=== PATIENT | male | born 1955 | race Caucasian/White ===

== ENCOUNTER → 2018-03-13 09:36 | Outpatient (CLI) | payer BC, SELFPAY ==
--- NOTE | 2018-03-13 10:06 | EKG12_ITS ---
Test Reason : PREOP Blood Pressure : / mmHG Vent. Rate : 071 BPM Atrial Rate : 071 BPM P-R Int : 126 ms QRS Dur : 094 ms QT Int : 398 ms P-R-T Axes : 008 003 014 degrees QTc Int : 432 ms Normal sinus rhythm Normal ECG Confirmed by RILEY DONALDSON, KT ([id number]), food editor FINESSE PINO ([id number] on 03/16/2018 2:23:47 PM Referred By: Lloyd Blackburn Confirmed By:KT LIN MD
[2018-03-13 11:47] LABS: Hematocrit 40.9 % (40-54); Hemoglobin 13.4 g/dl (13.0-16.5); Mean Corp Hgb Conc 32.8 g/gl (32-36); Mean Corpuscular Hgb 28.8 pg (27.0-32.0); Mean Platelet Vol. 9.6 fl (6.2-12.0); Platelet Count 219 K/mm3 (150-450); RBC Distribution Width CV 12.8 % (11.6-14.6); RBC Distribution Width SD 40.8 fl (35.1-43.9); Red Blood Count 4.65 M/mm3 (4.6-6.2); White Blood Count 5.7 K/mm3 (4.4-11.0)
[2018-03-13 11:48] LABS: Scan Indicated on CBC? Y/N NO
[2018-03-13 12:12] LABS: BUN 19 mg/dL (7-18); Creatinine, Serum 1.21 mg/dL (0.70-1.30); Glucose 116 mg/dL (74-106)
[2018-03-13 12:13] LABS: Anion Gap 6 (5-15); BUN/Creat Ratio 15.7 RATIO (10-20); Calcium,Total 8.2 mg/dL (8.5-10.1); Chloride 111 mmol/L (98-107); EST Glomerular Filtration Rate 65 mL/min (>60); Est Glom Filt Rate - Afr Amer 78 mL/min (>60); Potassium 4.2 mmol/L (3.5-5.1); Sodium Level 144 mmol/L (136-145)
== END ==
PROVIDERS: Family Provider Family Medicine; PCP Family Medicine; Visit Provider Physician Assistant
DX: Z01.818 Encounter for other preprocedural examination (principal)
CPT/HCPCS: 36415; 80048; 85027; 93005

== ENCOUNTER → 2018-06-10 12:04 | Outpatient (CLI) | payer BC, SELFPAY ==
[2018-06-10 13:27] LABS: Absolute Lymphocyte Count 2.13 X10^3/ul (0.83-4.51); Absolute Neutrophil Count 2.4 X10^3/uL (2.0-7.7); Basophil# 0.01 X10^3/uL; Basophil% 0.2 % (0-1); Eosinophil# 0.19 X10^3/uL; Eosinophils% 3.6 % (0-5); Hematocrit 37.4 % (40-54); Lymphocyte # 2.13 X10^3/ul (4.0); Mean Corp Hgb Conc 34.8 g/gl (32-36); Mean Corpuscular Volume 86.2 fL (80-94); Mean Platelet Vol. 9.3 fl (6.2-12.0); Monocyte# 0.55 X10^3/uL; Monocyte% 10.3 % (0-10); Neutrophil # 2.44 X10^3/uL (2.7-7.7); Neutrophil % 45.7 % (47-70); Platelet Count 238 K/mm3 (150-450); RBC Distribution Width CV 12.7 % (11.6-14.6); Red Blood Count 4.34 M/mm3 (4.6-6.2); White Blood Count 5.3 K/mm3 (4.4-11.0)
[2018-06-10 13:28] LABS: POSITIVE COUNT NO; POSITIVE DIFFERENTIAL NO; POSITIVE MORPHOLOGY NO
[2018-06-10 13:45] LABS: Anion Gap 6 (5-15); BUN 15 mg/dL (7-18); BUN/Creat Ratio 14.7 RATIO (10-20); Calcium,Total 8.5 mg/dL (8.5-10.1); Chloride 108 mmol/L (98-107); Creatinine, Serum 1.02 mg/dL (0.70-1.30); EST Glomerular Filtration Rate 79 mL/min (>60); Est Glom Filt Rate - Afr Amer 95 mL/min (>60); Glucose 102 mg/dL (74-106); Potassium 3.9 mmol/L (3.5-5.1); Sodium Level 143 mmol/L (136-145)
== END ==
PROVIDERS: Family Provider Family Medicine; PCP Family Medicine; Visit Provider Orthopaedic Surgery
DX: Z01.818 Encounter for other preprocedural examination (principal)
CPT/HCPCS: 36415; 80048; 85025

== ENCOUNTER 2018-11-10 16:09 | Observation (INO) | payer BC, SELFPAY ==
[2018-10-29 13:21] VITALS: BP 138/76; PULSE 78; RESP 16; TEMP 36.6; O2SAT 94; BMI 41.0
[2018-10-29 14:10] LABS: Absolute Lymphocyte Count 2.44 X10^3/ul (0.83-4.51); Absolute Neutrophil Count 3.1 X10^3/uL (2.0-7.7); Basophil# 0.03 X10^3/uL; Basophil% 0.5 % (0-1); Eosinophil# 0.25 X10^3/uL; Eosinophils% 3.9 % (0-5); Hematocrit 40.4 % (40-54); Lymphocyte # 2.44 X10^3/ul (4.0); Lymphocyte % 37.7 % (19-41); Mean Corp Hgb Conc 34.7 g/gl (32-36); Mean Corpuscular Hgb 29.5 pg (27.0-32.0); Mean Corpuscular Volume 85.1 fL (80-94); Mean Platelet Vol. 9.6 fl (6.2-12.0); Monocyte# 0.62 X10^3/uL; Monocyte% 9.6 % (0-10); Neutrophil # 3.11 X10^3/uL (2.7-7.7); Neutrophil % 47.8 % (47-70); POSITIVE COUNT NO; POSITIVE DIFFERENTIAL NO; POSITIVE MORPHOLOGY NO; Platelet Count 245 K/mm3 (150-450); RBC Distribution Width CV 12.7 % (11.6-14.6); RBC Distribution Width SD 38.8 fl (35.1-43.9); Red Blood Count 4.75 M/mm3 (4.6-6.2); White Blood Count 6.5 K/mm3 (4.4-11.0)
[2018-10-29 14:59] LABS: Anion Gap 8 (5-15); BUN 15 mg/dL (7-18); BUN/Creat Ratio 13.9 RATIO (10-20); Calcium,Total 8.8 mg/dL (8.5-10.1); Chloride 103 mmol/L (98-107); Creatinine, Serum 1.08 mg/dL (0.70-1.30); EST Glomerular Filtration Rate 74 mL/min (>60); Est Glom Filt Rate - Afr Amer 89 mL/min (>60); Estimated Creatinine Clearance 74.16 ml/min; Glucose 93 mg/dL (74-106); Sodium Level 139 mmol/L (136-145); Thyroid Stim Hormone (TSH) 1.43 uIU/mL (0.358-3.74)
--- NOTE | 2018-10-29 22:38 | PCM.HP.BLA ---
History and Physical DATE OF SURGERY: 11/10/2018 SCHEDULED PROCEDURE: Right Total Knee Arthroplasty HISTORY OF PRESENT ILLNESS: This is a 63-year-old male who has been having ongoing pain in the right knee for several years duration. Patient states his pain is intermittent, dull, sharp, and sore. Patient states he has increased pain going up and down stairs, walking any amount of distance. He has difficult time with activities of daily living including shopping and leisure activities such as gardening. Patient has stumbled secondary to the right knee pain. Patient feels unsafe hiking, going on long walks, stairs, and quick movements. Patient has tried conservative measures consisting of rest, elevation with minimal relief. He has been through previous corticosteroid injections with only temporary relief. Patient has been through previous gel injection in 2018 with no significant relief in symptoms. Patient has been through formal physical therapy and home exercises. He has tried oral medications consisting of meloxicam minimal relief. Patient denies previous surgery on the right knee. After failing conservative measures and discussing all treatment options with Dr. Richie Perez, the patient does wish to proceed with a right total knee arthroplasty. Patient currently denies any chest pain, shortness of breath, fevers chills. Patient will be obtaining surgical clearance from his primary care physician. REVIEW OF SYSTEMS: ROS: Const: Denies anorexia, change in appetite, fever, difficulty sleeping, weight change. CV: Denies chest pain, heart murmur, irregular heartbeat and peripheral vascular disease. Resp: Denies asthma, cough, pneumonia, sleep apnea, shortness of breath, tuberculosis and wheezing. GI: Denies constipation, diarrhea, heartburn, nausea, rectal itching, bloody stools and vomiting. : Denies incontinence. Musculo: Denies leg swelling, pain, trouble walking and weakness. Skin: Denies Raynaud's, history of shingles and tattoo. Neuro: Denies ambulatory dysfunction, dizziness, numbness/tingling and tremor. Psych: Denies anxiety, depression, insomnia, mental illness and stress. Babak/Lymph: Denies anemia, bleeding/bruising tendency and past transfusion. Reviewed, no changes. PAST MEDICAL HISTORY: Advance Care Plan: No Advance Directives Effective Date: 02/22/2018 PMH: Medical Problems: Hypothyroidism, Hypercholesterolemia Accidents: LT Hand Ring Finger FX RT Shoulder Injury - WORK RELATED Surgical Hx: Tonsillectomy - (1965) [facility] RT Shoulder - [facility] Shoulder Arthroscopy RT - (06/2013) [facility] LT Shoulder Arthroscopy - (03/24/2018) [facility] @ [facility] LT Shoulder - (05/2018) [email or web address] Anesthesia Complications: None Assistive Devices: Glasses Reviewed and updated. 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 Personal Habits: Smoking: Patient has never smoked.Cigarette Use: Never Smoked Cigarettes.E-Cigarette Use: Never used.Alcohol: Denies use.Drug Use: Denies Use.Enjoy Exercising: Never Exercises. Reviewed and updated. VITALS: Ht: 68 Wt: 285lb Wt k.276 BMI: 43.3 BP: 138/90 Pulse: 78 Resp: 16 T: 97.1 T: 36.2C ALLERGIES: Small Pox Vaccine - Nearly as A Child MEDICATIONS: Meloxicam 15 mg 1 by mouth every day, Levothyroxine Sodium 175 mcg 1 by mouth every day, Atorvastatin Calcium 10 mg 1 tab PO daily, Potassium 99 mg 1 tab PO daily PRE-OP EXAM: General appearance:NORMAL Other: Eyes: Conjunctivae and lids: NORMAL Pupils: ERR Ears, Nose, Mouth, and Throat: NORMAL Other: Inspection of lips, teeth and gums: NORMAL Other: Neck: Examination of neck: no masses noted. Respiratory: Assessment of respiratory effort: NORMAL Other: Auscultation of lungs: clear to auscultation no wheezes, rhonchi or rales. Cardiovascular: Auscultation of heart: regular rate and rhythm, no murmurs, gallops or rubs. Exam of carotid arteries: NORMAL Other: Gastrointestinal: Exam of abdomen: soft, nontender, nondistended bowel sounds present. PHYSICAL EXAMINATION: Patient walks with an antalgic gait. He has tenderness to palpation of the medial joint line of the right knee. Range of motion right knee: Lacks 5 of full extension to 115 of flexion. Stable to varus/valgus stress test. Sensation intact to light touch. Neurovascularly intact. IMAGING STUDIES: Previous x-rays on September 23, 2018 of the right knee reveal varus alignment with medial joint space narrowing, subchondral sclerosis, osteophyte formation consistent with moderate to severe osteoarthritis. MRI of the right knee does show reveal tricompartmental osteoarthritis with medial and lateral meniscus tears with medial compartment having full thickness loss of cartilage. IMPRESSION: 1. Tricompartmental right knee osteoarthritis 2. Hypothyroidism 3. Hypercholesterolemia PLAN: Dr. Richie Perez did discuss and review with the patient all treatment options including surgical versus nonsurgical options. Patient does wish to proceed with the above-stated procedure. Potential risks, benefits, and complications of the procedure were discussed in detail including but not limited to , infection, nerve and blood vessel damage, persistent pain, numbness, tingling, paresthesias, blood clot, pulmonary embolism, and requirement for possible further surgery. The patient expressed full understanding and has no further questions for the doctor. Patient does agree to proceed with the above-stated procedure and has signed the surgery consent form. This dictation was created using voice recognition software. Phonetic and/or grammatical errors may exist.. ___ I have re-examined the patient. There are no clinical changes since date of exam. ___ See progress notes for changes. ___ Dictated on admission Date: Time: Signature:
--- NOTE | 2018-11-05 12:04 | CASEMGMT ---
Attempted to contact patient to discuss discharge needs after upcoming surgery. No answer on cell phone, voicemail left. Whitney Arriola LPN Clinical Support
[2018-11-10] VITALS (14 sets, daily range): BP systolic 106–129; BP diastolic 52–85; PULSE 80–98; RESP 16–18; TEMP 36.3–37.4; O2SAT 91–100; BMI 41.0
[2018-11-10] MEDS: Celecoxib 200 MG Capsule 400 MG PO (10:49)
[2018-11-10] MEDS: oxyCODONE HCl Cr 10 MG Tablet PO (10:49)
[2018-11-10] MEDS: Acetaminophen 500 MG Tablet 1000 MG PO ×2 (10:49→21:42)
--- NOTE | 2018-11-10 11:24 | RAD_ITS ---
STUDY: X-RAY - RIGHT KNEE REASON FOR EXAM: Male, 63 years old. Status post total knee replacement. TECHNIQUE: 2 view(s) of the knee. COMPARISON: None. FINDINGS: Normal visualized distal femur. Normal visualized proximal tibia and fibula. Normal proximal tibiofibular articulation. The patient is status post total knee replacement. Good alignment. Postoperative soft tissue changes. RAD/Knee 1 or 2 Views IMPRESSION: Status post total knee replacement. There is good alignment. Postoperative soft tissue changes. Electronically Signed: Brian Olivares MD at 14:13 EST Tel [phone], Service support ,
[2018-11-10] MEDS: Lactated Ringers 1,000 ML 999 ML IV (11:30)
--- NOTE | 2018-11-10 12:49 | PCM.OPRPT ---
Report of Operation Date of Procedure: 11/10/18 Pre-Operative Diagnosis: Right knee primary osteoarthritis Post-Operative Diagnosis: Right knee primary osteoarthritis Surgery/Procedure Performed:: Right total knee replacement Description of Surgical Findings:: Stable knee with good patella tracking, press-fit, CR wash crew person: Denise Lnaza Type of Anesthesia:: Spinal Anesthesiologist: Tyson Allison Special Medications: 2 g Ancef, 1 g TXA at incision, 1 g TXA closure, 10 mg Decadron, joint cocktail (5 mg Duramorph, 30 mL of 0.5% Ropivicaine, 1000 units of epinephrine, 30 mg of Toradol) Specimen's removed: Bony cuts Estimated Blood Loss (mL): 50 Fluids Replaced: 1000 mL crystalloid Description of Procedure: Implants used: 1. Franky size 6 press-fit triathlon cruciate retaining distal femoral component 2. Franky size 6 press-fit tibial baseplate 3. Franky X3 9 mm CS polyethylene 4. [place] X3 38 mm asymmetric patella Brief history operative indications: 63-year-old m with history of R knee osteoarthritis with radiographic findings with loss of joint space, osteophyte formation and subchondral sclerosis. Failed conservative measures as mentioned in the H&P. Discussion of total knee arthroplasty as well as risk and benefits were discussed the patient including but not limited to blood loss, DVTs, PEs, neurovascular damage, general risk of anesthesia including loss of life, and stiffness or instability were discussed with patient. Patient demonstrated understanding and was able to sign informed consent. Procedure: On the date of procedure patient's R lower extremity was marked in the preoperative area. The patient was then taken back to the operating room where the patient was placed on the table in the supine position. All bony prominences were identified a well-padded. Anesthesia assumed control of the C-spine and airway and remained controlled throughout the remainder of the procedure. A tourniquet was placed on the R upper thigh and the leg was prepped in a sterile fashion. The surgeon then scrubbed at this time. Upon reentering the room R lower extremity was draped in a standard orthopedic fashion. A timeout was then called and everyone agreed upon the side, the site, the procedure to be performed, patient's identity and antibiotics given. Esmarch bandage was used to exsanguinate the extremity and the tourniquet was placed up to 250 mmHg with the knee in flexion. A midline skin incision was made and sharp dissection was taken down through skin subcutaneous tissue and fat. The standard medial parapatellar incision was made and the patella was subluxed laterally. The standard deep MCL release was done and the fat pad was resected. Next our attention was directed to the femur. Navigation pins were placed, navigation was registered. The distal femoral cutting block was pinned into place and 9 mm of distal femur resection was completed. The distal femoral cut was verified with navigation. The knee was then placed in deep flexion in the standard [email or web address] sizing guide was used to place the femoral component in 3? external rotation based on the posterior condyles. A size 6 4-in-1 cutting block was selected and pinned into place. The anterior cut was then made and checked for notching. The subsequent anterior chamfer cuts, posterior condylar cuts and posterior chamfer cuts were made while ensuring the MCL and LCL were protected. Our attention was then turned to the tibia where the [employer] tibial cutting guide was used to make the appropriate tibial cut 90 degrees from the mechanical axis. Navigation was then used to verify the cut. A size 6 tibial base plate was selected. the knee was flexed to 90 degrees and the soft tissues and posterior osteophytes were removed from the joint. 40 cc of the periarticular injection was injected into the posterior medial corner of the joint. The appropriate trials were then placed on the femur and tibia. A trial polyethylene was trialed to ensure proper balancing and stability of the knee. Patella tracking, was then verified and corrected appropriately as needed. The appropriate tibial internal rotation was then marked with a bovie. Our attention was then directed to the patella. The patella was everted and a flat resection was made. The lug holes were drilled and the patella trial was placed. Patellar tracking was checked and deemed appropriate. Once we were happy lug holes were drilled for the femur and trial components were removed. Cement was mixed at this time and the tourniquet was let down the tibia was subluxed and pinned into place and the keel was punched and the canal was reamed. Final components were verified and opened, and cement was mixed in a vacuum. [place] Simplex cement was used. The wound was copiously irrigated with normal saline. When the cement was ready the press-fit components were impacted into place starting with the tibia, femur and finally the patella cemented into place. The trial poly component was placed and the knee was placed in full extension. All excess cement was removed in the process. Once the cement had cured the tracking, alignment and balance were verified and a size 9 mm polyethylene component was placed. Once the final components were placed the wound was copiously irrigated with normal saline solution and the periarticular injection was given. The wound was closed in a layer griffin fashion using #1 vicryl interrupted sutures for the arthrotomy, 2-0 interrupted Vicryl suture for the subcuticular layer and ashwini for final skin closure. A sterile compressive dressing was then placed. The patient was then awakened from anesthesia, transferred to the reffort and transferred to the PACU for recovery. Post op plan DVT ppx: ASA 81mg, thigh high compression stockings Follow up: in office in 2 weeks for wound check PT: to start POD #0 at hospital, outpatient PT should be arranged. Grafts/Implants Used: [place] press-fit triathlon total knee replacement - Complications None - Admit VTE Documentation VTE Present on Admission: No VTE Mechan Device Prophylaxis: SCD's, Thigh High NOMAN Hose VTE Pharm Prophylaxis ordered?: Yes
--- NOTE | 2018-11-10 12:54 | OP.PCM_ITS ---
Report of Operation Date of Procedure: 11/10/18 Pre-Operative Diagnosis: Right knee primary osteoarthritis Post-Operative Diagnosis: Right knee primary osteoarthritis Surgery/Procedure Performed:: Right total knee replacement Description of Surgical Findings:: Stable knee with good patella tracking, press-fit, CR supervisor broadloom: Denise Lanza Type of Anesthesia:: Spinal Anesthesiologist: Tyson Allison Special Medications: 2 g Ancef, 1 g TXA at incision, 1 g TXA closure, 10 mg Decadron, joint cocktail (5 mg Duramorph, 30 mL of 0.5% Ropivicaine, 1000 units of epinephrine, 30 mg of Toradol) Specimen's removed: Bony cuts Estimated Blood Loss (mL): 50 Fluids Replaced: 1000 mL crystalloid Description of Procedure: Implants used: 1. Franky size 6 press-fit triathlon cruciate retaining distal femoral component 2. Franky size 6 press-fit tibial baseplate 3. Franky X3 9 mm CS polyethylene 4. [place] X3 38 mm asymmetric patella Brief history operative indications: 63-year-old m with history of R knee osteoarthritis with radiographic findings with loss of joint space, osteophyte formation and subchondral sclerosis. Failed conservative measures as mentioned in the H&P. Discussion of total knee arthroplasty as well as risk and benefits were discussed the patient including but not limited to blood loss, DVTs, PEs, neurovascular damage, general risk of anesthesia including loss of life, and stiffness or instability were discussed with patient. Patient demonstrated understanding and was able to sign informed consent. Procedure: On the date of procedure patient's R lower extremity was marked in the preoperative area. The patient was then taken back to the operating room where the patient was placed on the table in the supine position. All bony prominences were identified a well-padded. Anesthesia assumed control of the C-spine and airway and remained controlled throughout the remainder of the procedure. A tourniquet was placed on the R upper thigh and the leg was prepped in a sterile fashion. The surgeon then scrubbed at this time. Upon reentering the room R lower extremity was draped in a standard orthopedic fashion. A timeout was then called and everyone agreed upon the side, the site, the procedure to be p erformed, patient's identity and antibiotics given. Esmarch bandage was used to exsanguinate the extremity and the tourniquet was placed up to 250 mmHg with the knee in flexion. A midline skin incision was made and sharp dissection was taken down through skin subcutaneous tissue and fat. The standard medial parapatellar incision was made and the patella was subluxed laterally. The standard deep MCL release was done and the fat pad was resected. Next our attention was directed to the femur. Navigation pins were placed, navigation was registered. The distal femoral cutting block was pinned into place and 9 mm of distal femur resection was completed. The distal femoral cut was verified with navigation. The knee was then placed in deep flexion in the standard [employer] sizing guide was used to place the femoral component in 3? external rotation based on the posterior condyles. A size 6 4-in-1 cutting block was selected and pinned into place. The anterior cut was then made and checked f or notching. The subsequent anterior chamfer cuts, posterior condylar cuts and posterior chamfer cuts were made while ensuring the MCL and LCL were protected. Our attention was then turned to the tibia where the [employer] tibial cutting guide was used to make the appropriate tibial cut 90 degrees from the mechanical axis. Navigation was then used to verify the cut. A size 6 tibial base plate was selected. the knee was flexed to 90 degrees and the soft tissues and posterior osteophytes were removed from the joint. 40 cc of the periarticular injection was injected into the posterior medial corner of the joint. The appropriate trials were then placed on the femur and tibia. A trial polyethylene was trialed to ensure proper balancing and stability of the knee. Patella tracking, was then verified and corrected appropriately as needed. The appropriate tibial internal rotation was then marked with a bovie. Our attention was then directed to the patella. The patella was everted and a flat resection was made. The lug holes were drilled and the patella trial was placed. Patellar tracking was checked and deemed appropriate. Once we were happy lug holes were drilled for the femur and trial components were removed. Cement was mixed at this time and the tourniquet was let down the tibia was subluxed and pinned into place and the keel was punched and the canal was reamed. Final components were verified and opened, and cement was mixed in a vacuum. [place] Simplex cement was used. The wound was copiously irrigated with normal saline. When the cement was ready the press-fit components were impacted into place starting with the tibia, femur and finally the patella cemented into place. The trial poly component was placed and the knee was placed in full extension. All excess cement was removed in the process. Once the cement had cured the tracking, alignment and balance were verified and a size 9 mm polyethylene component was placed. Once the final components were placed the wound was copiously irrigated with normal saline solution and the periarticular injection was given. The wound was closed in a layer griffin fashion using #1 vicryl interrupted sutures for the arthrotomy, 2-0 interrupted Vicryl suture for the subcuticular layer and ashwini for final skin closure. A sterile compressive dressing was then placed. The patient was then awakened from anesthesia, transferred to the rmiranda and transferred to the PACU for recovery. Post op plan DVT ppx: ASA 81mg, thigh high compression stockings Follow up: in office in 2 weeks for wound check PT: to start POD #0 at hospital, outpatient PT should be arranged. Grafts/Implants Used: Franky press-fit triathlon total knee replacement - Complications None - Admit VTE Documentation VTE Present on Admission: No VTE Mechan Device Prophylaxis: SCD's, Thigh High NOMAN Hose VTE Pharm Prophylaxis ordered?: Yes
[2018-11-10] MEDS: Scopolamine 1mg/72hr Patch 1 PATCH TD (14:14)
[2018-11-10] MEDS: Cefazolin 1 GM/50 ML BAG IV (16:57)
[2018-11-10] MEDS: Lactated Ringers 1,000 ML 125 ML IV (16:57)
[2018-11-10] MEDS: Ketorolac 15 MG/ML Vial IV (16:57)
[2018-11-10] MEDS: Aspirin 81 MG TAB.CHEW PO (21:42)
[2018-11-10] MEDS: oxyCODONE 5 MG Tablet PO (21:42)
[2018-11-10] MEDS: Atorvastatin Calcium 10 MG Tablet PO (21:42)
[2018-11-10] MEDS: Senna/Docusate Sodium 1 Tablet 2 TABLET PO (21:43)
[2018-11-11] MEDS: Cefazolin 1 GM/50 ML BAG IV (01:01)
[2018-11-11] MEDS: Lactated Ringers 1,000 ML 125 ML IV (01:01)
[2018-11-11] MEDS: oxyCODONE 5 MG Tablet PO ×5 (01:43→20:10)
[2018-11-11 03:00] VITALS: BP 136/76; PULSE 91; RESP 16; TEMP 36.9; O2SAT 97
[2018-11-11] MEDS: Morphine 2 MG/ML Syringe IV ×2 (03:01→05:18)
[2018-11-11] MEDS: 0.9% NaCl Peripheral Flush Adult/Peds IV ×2 (05:19→09:09)
[2018-11-11] MEDS: Levothyroxine 175 MCG Tablet PO (05:20)
[2018-11-11] MEDS: Acetaminophen 500 MG Tablet 1000 MG PO ×3 (05:20→21:52)
[2018-11-11 06:02] LABS: Hematocrit 34.4 % (40-54); Hemoglobin 11.8 g/dl (13.0-16.5); Mean Corp Hgb Conc 34.3 g/gl (32-36); Mean Corpuscular Hgb 29.9 pg (27.0-32.0); Mean Corpuscular Volume 87.1 fL (80-94); Platelet Count 211 K/mm3 (150-450); RBC Distribution Width CV 12.7 % (11.6-14.6); RBC Distribution Width SD 39.8 fl (35.1-43.9); Red Blood Count 3.95 M/mm3 (4.6-6.2); White Blood Count 9.6 K/mm3 (4.4-11.0)
[2018-11-11 06:12] LABS: Scan Indicated on CBC? Y/N NO
[2018-11-11 06:18] LABS: Anion Gap 8 (5-15); BUN 15 mg/dL (7-18); BUN/Creat Ratio 12.2 RATIO (10-20); Chloride 104 mmol/L (98-107); Creatinine, Serum 1.23 mg/dL (0.70-1.30); EST Glomerular Filtration Rate 64 mL/min (>60); Est Glom Filt Rate - Afr Amer 77 mL/min (>60); Estimated Creatinine Clearance 65.12 ml/min; Glucose 139 mg/dL (74-106); Potassium 4.3 mmol/L (3.5-5.1); Sodium Level 136 mmol/L (136-145)
[2018-11-11] MEDS: Aspirin 81 MG TAB.CHEW PO ×2 (07:53→16:25)
[2018-11-11] MEDS: Famotidine 20 MG Tablet PO (07:53)
[2018-11-11] MEDS: Senna/Docusate Sodium 1 Tablet 2 TABLET PO ×2 (07:53→21:52)
[2018-11-11 08:00] VITALS: BP 129/77; PULSE 84; RESP 18; TEMP 36.6; O2SAT 98
[2018-11-11] MEDS: Ketorolac 15 MG/ML Vial IV (09:09)
--- NOTE | 2018-11-11 10:32 | PN.ORTHO_ITS ---
Subjective: The patient was sitting in bed upon examination. Patient denies any chest pain, shortness of breath, dizziness, lightheadedness, nausea or vomiting, or calf pain. Patient is complaining of pain in his right knee as well as right thigh. Pain medications are helpful. Patient states he did struggle somewhat today with physical therapy. No adverse overnight events. I feel patient would be better staying 1 more night and getting more therapy with discharge tomorrow. Objective: Vital signs stable and afebrile. Patient is able to plantarflex and dorsiflex actively. Sensation is intact to light touch to saphenous, sural, superficial and deep peroneal, and tibial distribution. Dressing is clean dry and intact. Negative Homans bilaterally, negative signs and symptoms of DVT. Tenderness to palpation over right thigh secondary from tourniquet, no ecchymosis. Thigh is soft and supple. - Physical Exam General: Alert, Oriented x3, Cooperative, No apparent distress Vital Signs Temp Pulse Resp BP Pulse Ox 97.8 F 84 18 129/77 H 98 11/11/18 08:00 11/11/18 08:00 11/11/18 08:00 11/11/18 08:00 11/11/18 08:00 Oxygen Flow Rate (L/min) 2 Oxygen Delivery Method Room Air Weight: 129.6 kg Body Mass Index (BMI) 41.0 Intake and Output for Last 24 Hours 11/09/18 11/10/18 11/11/18 23:59 23:59 23:59 Intake Total 2100 / 2100 3100 / 3100 Output Total 400 / 400 Balance 2100 / 2100 2700 / 2700 Laboratory Tests Past 24 Hrs 11/11/18 11/11/18 05:32 05:32 WBC 9.6 RBC 3.95 L Hgb 11.8 L Hct 34.4 L MCV 87.1 MCH 29.9 MCHC 34.3 RDW 12.7 RDW Differential 39.8 Plt Count 211 MPV 10.0 Sodium 136 Potassium 4.3 Chloride 104 Carbon Dioxide 24.0 Anion Gap 8 BUN 15 Creatinine 1.23 Estim Creat Clear Calc 65.12 Est GFR (MDRD) Af Amer 77 Est GFR (MDRD) Non-Af 64 BUN/Creatinine Ratio 12.2 Glucose 139 H Calcium 8.0 L Medical Necessity - Tobacco Use Smoking Status: Never smoker Tobacco Use: Non-smoker Assessment/Plan 1. S/P right total knee arthroplasty POD #1 2. Continue Pain Medications: Tylenol and oxycodone 3. DVT Prophylaxis: Aspirin 81 mg twice daily with food for 4 weeks postoperatively 4. PT/OT: Weightbearing as tolerated 5. H & H: 11.8/34.4, asymptomatic 6. Encouraged Incentive Spirometry 7. Disposition: Plan will be for possible discharge home tomorrow. Continue working with physical therapy. Continue current pain medications. Continue w ith ice over the right knee.
--- NOTE | 2018-11-11 10:32 | PCM.DC.TKR ---
Discharge Diet: No Restrictions Discharge Activity: May Not Drive May shower in (days): 1 - Turned dressing away from water Ice area for (Minutes): 20 - every hour while awake. Weight Bearing Status: Weight bearing as tolerated Elevate: Operative Extremity Additional Activity Instructions:: Wear elastic stockings for 2 weeks after your surgery. Call your doctor if your incision/area has: Continuous Slow Oozing, Sudden Increased Bleeding, Increased Pain/ Swelling, Increased Redness, Foul Smelling Discharge Call your doctor if you observe: Fever of 101 or Higher, Coldness, Increased Pain, Numbness or Tingling, Change in Color, Calf discomfort, Uncontrolled pain Remove Dressing in (days):: 3 - Okay to remove dressing on November 15, 2018 Additional Instructions: Follow [facility] postop instructions Allergies/Adverse Reactions: Allergies POLIO VACCINE Adverse Reaction (Uncoded 10/29/18 13:06) Other Medications to take at Discharge Atorvastatin Calcium [Lipitor] 10 mg PO QHS 10/29/18 Levothyroxine Sodium [Synthroid] 175 mcg PO DAILY 10/29/18 Potassium (Otc) [Potassium OTC] 99 mg PO DAILY 10/29/18 Acetaminophen [Tylenol Extra Strength] 1,000 mg PO Q8H PRN #90 tablet 11/12/18 Aspirin [Aspirin, Baby] 81 mg PO BIDCM #60 tab.chew 11/12/18 Famotidine [Pepcid] 20 mg PO DAILY #30 tablet 11/12/18 Meloxicam [Mobic] 7.5 mg PO BID #60 tablet 11/12/18 Oxycodone [Oxyir] 5 - 10 mg PO Q4H PRN PRN 7 Days tablet 11/12/18 Senna/Docusate Sodium [Senokot-S] 2 tablet PO BID #20 tablet 11/12/18 The following prescriptions were given: Acetaminophen [Tylenol Extra Strength] 1,000 mg PO Q8H PRN #90 tablet Famotidine [Pepcid] 20 mg PO DAILY #30 tablet Aspirin [Aspirin, Baby] 81 mg PO BIDCM #60 tab.chew Meloxicam [Mobic] 7.5 mg PO BID #60 tablet Senna/Docusate Sodium [Senokot-S] 2 tablet PO BID #20 tablet Primary Care Physician: Jordan Miner MD [Primary Care Provider] - Test Results: Test results from this visit will be discussed in further detail at your follow-up appointment, if applicable. Please Follow Up With: [facility] When: 11/15/18 @ 1:00 pm Please Follow Up With: Chas Childs PA-C When: 11/25/18 @ 3:45 pm
--- NOTE | 2018-11-11 11:10 | CASEMGMT ---
LETICIA WHARTON Face to Face with patient for initial transition planning/care coordination assessment. RN CM introduced self and role at [facility]. Patient lying in bed, alert and oriented. Patient willing to participate in assessment and is able to answer all questions appropriately. Care providers, pharmacy, and demographics verified. Patient wishes to discharge home and is setup with [facility] for outpatient therapy. Patient states he has no further needs or concerns at this time. CM to follow for discharge planning needs that may arise. Disposition Plan: Patient to discharge home with outpatient therapy, family support, and follow-up plans in place. Mirella PANIAGUA, RN, CM
[2018-11-11 15:05] VITALS: BP 144/77; PULSE 90; RESP 18; TEMP 36.7; O2SAT 100
[2018-11-11 20:15] VITALS: BP 138/76; PULSE 95; RESP 16; TEMP 36.9; O2SAT 94
[2018-11-11] MEDS: Atorvastatin Calcium 10 MG Tablet PO (21:52)
[2018-11-11] MEDS: Meloxicam 7.5 MG Tablet PO (21:52)
[2018-11-12 02:35] VITALS: BP 132/75; PULSE 92; RESP 16; TEMP 36.6; O2SAT 95
[2018-11-12] MEDS: oxyCODONE 5 MG Tablet PO ×3 (02:36→12:22)
[2018-11-12] MEDS: Levothyroxine 175 MCG Tablet PO (06:01)
[2018-11-12] MEDS: Acetaminophen 500 MG Tablet 1000 MG PO ×2 (06:01→14:52)
[2018-11-12 06:49] LABS: Hematocrit 35.4 % (40-54); Hemoglobin 11.7 g/dl (13.0-16.5); Mean Corp Hgb Conc 33.1 g/gl (32-36); Mean Corpuscular Hgb 28.7 pg (27.0-32.0); Mean Platelet Vol. 9.7 fl (6.2-12.0); Platelet Count 211 K/mm3 (150-450); RBC Distribution Width CV 12.8 % (11.6-14.6); RBC Distribution Width SD 40.9 fl (35.1-43.9); Red Blood Count 4.07 M/mm3 (4.6-6.2)
[2018-11-12 06:50] LABS: Scan Indicated on CBC? Y/N NO
--- NOTE | 2018-11-12 07:10 | PCM.PN.ORT ---
Subjective: The patient was sitting in bedside chair upon examination. Patient denies any chest pain, shortness of breath, dizziness, lightheadedness, nausea or vomiting, or calf pain. Patient does complain of pain in the right knee. Pain is controlled on medications. No adverse overnight events. Plan will be for discharge home today. Objective: Vital signs stable and afebrile. Patient is able to plantarflex and dorsiflex actively. Sensation is intact to light touch to saphenous, sural, superficial and deep peroneal, and tibial distribution. Dressing is clean dry and intact. Negative Homans bilaterally, negative signs and symptoms of DVT. - Physical Exam General: Alert, Oriented x3, Cooperative, No apparent distress Vital Signs Temp Pulse Resp BP Pulse Ox 97.8 F 92 16 132/75 H 95 11/12/18 02:35 11/12/18 02:35 11/12/18 02:35 11/12/18 02:35 11/12/18 02:35 Oxygen Flow Rate (L/min) 2 Oxygen Delivery Method Room Air Weight: 129.6 kg Body Mass Index (BMI) 41.0 Intake and Output for Last 24 Hours 11/10/18 11/11/18 11/12/18 23:59 23:59 23:59 Intake Total 2100 / 2100 3800 / 3800 700 / 700 Output Total 1000 / 1000 400 / 400 Balance 2100 / 2100 2800 / 2800 300 / 300 Laboratory Tests Past 24 Hrs 11/12/18 06:23 WBC 11.0 RBC 4.07 L Hgb 11.7 L Hct 35.4 L MCV 87.0 MCH 28.7 MCHC 33.1 RDW 12.8 RDW Differential 40.9 Plt Count 211 MPV 9.7 Medical Necessity - Tobacco Use Smoking Status: Never smoker Tobacco Use: Non-smoker Assessment/Plan 1. S/P right total knee arthroplasty POD #2 2. Continue Pain Medications: Tylenol and oxycodone 3. DVT Prophylaxis: Aspirin 81 mg twice daily with food for 4 weeks postoperatively 4. PT/OT: Weightbearing as tolerated 5. H & H: 11.7/35.4, asymptomatic 6. Encouraged Incentive Spirometry 7. Disposition: Plan is for discharge home today. Orthopedically stable. Prescriptions will be sent to [facility] pharmacy. Patient will follow-up per postop instructions.
--- NOTE | 2018-11-12 07:13 | PN.ORTHO_ITS ---
Subjective: The patient was sitting in bedside chair upon examination. Patient denies any chest pain, shortness of breath, dizziness, lightheadedness, nausea or vomiting, or calf pain. Patient does complain of pain in the right knee. Pain is controlled on medications. No adverse overnight events. Plan will be for discharge home today. Objective: Vital signs stable and afebrile. Patient is able to plantarflex and dorsiflex actively. Sensation is intact to light touch to saphenous, sural, superficial and deep peroneal, and tibial distribution. Dressing is clean dry and intact. Negative Homans bilaterally, negative signs and symptoms of DVT. - Physical Exam General: Alert, Oriented x3, Cooperative, No apparent distress Vital Signs Temp Pulse Resp BP Pulse Ox 97.8 F 92 16 132/75 H 95 11/12/18 02:35 11/12/18 02:35 11/12/18 02:35 11/12/18 02:35 11/12/18 02:35 Oxygen Flow Rate (L/min) 2 Oxygen Delivery Method Room Air Weight: 129.6 kg Body Mass Index (BMI) 41.0 Intake and Output for Last 24 Hours 11/10/18 11/11/18 11/12/18 23:59 23:59 23:59 Intake Total 2100 / 2100 3800 / 3800 700 / 700 Output Total 1000 / 1000 400 / 400 Balance 2100 / 2100 2800 / 2800 300 / 300 Laboratory Tests Past 24 Hrs 11/12/18 06:23 WBC 11.0 RBC 4.07 L Hgb 11.7 L Hct 35.4 L MCV 87.0 MCH 28.7 MCHC 33.1 RDW 12.8 RDW Differential 40.9 Plt Count 211 MPV 9.7 Medical Necessity - Tobacco Use Smoking Status: Never smoker Tobacco Use: Non-smoker Assessment/Plan 1. S/P right total knee arthroplasty POD #2 2. Continue Pain Medications: Tylenol and oxycodone 3. DVT Prophylaxis: Aspirin 81 mg twice daily with food for 4 weeks postopera tively 4. PT/OT: Weightbearing as tolerated 5. H & H: 11.7/35.4, asymptomatic 6. Encouraged Incentive Spirometry 7. Disposition: Plan is for discharge home today. Orthopedically stable. Prescriptions will be sent to [facility] pharmacy. Patient will follow-up per postop instructions.
[2018-11-12 08:05] VITALS: BP 127/77; PULSE 86; RESP 18; TEMP 36.7; O2SAT 96
[2018-11-12] MEDS: Ketorolac 15 MG/ML Vial IV (08:09)
[2018-11-12] MEDS: Aspirin 81 MG TAB.CHEW PO (08:10)
[2018-11-12] MEDS: Meloxicam 7.5 MG Tablet PO (08:11)
[2018-11-12] MEDS: Senna/Docusate Sodium 1 Tablet 2 TABLET PO (08:11)
[2018-11-12] MEDS: Famotidine 20 MG Tablet PO (08:11)
--- NOTE | 2018-11-12 09:02 | PCA ---
therapy working with pt
[2018-11-12 16:00] VITALS: BP 122/65; PULSE 97; RESP 18; TEMP 37.2; O2SAT 94
--- OUTSIDE RECORDS SUMMARY | 2018-12-27 08:45 | XMS RPT_ITS ---
:1955 Author Organization [facility] Care Team Providers Name Role Phone YOSELYN GASTELUM MD Attending Unavailable YOSELYN GASTELUM MD Primary Care Unavailable YOSELYN GASTELUM MD Attending Unavailable YOSELYN GASTELUM MD Primary Care Unavailable DR. ODETTE TELLO DO Attending Unavailable YOSELYN GASTELUM MD Primary Care Unavailable Richie Perez Attending Unavailable Richie Perez Referring Unavailable Yoselyn Gastelum Primary Care Unavailable Richie Perez Admitting Unavailable Memo Burnette Attending Unavailable Memo Burnette Referring Unavailable Yoselyn Gastelum Primary Care Unavailable Keith Demarco Attending Unavailable Lloyd Blackburn Referring Unavailable Lloyd Blackburn Attending Unavailable Lloyd Blackburn Referring Unavailable Yoselyn Gastelum Primary Care Unavailable PROBLEMS PROBLEMS DATE TYPE CONDITION / CODE ATTENDING STATUS SOURCE 11/12/2018 Unknown Z96.651 - Presence Richie Perez Active [facility] right [facility] Z96.651(ICD-10) Repository 06/10/2018 Unknown Z01.818 - Encounter Memo Burnette Active [facility] for other [facility] preprocedural Hospital examination / Repository Z01.818(ICD-10) PROCEDURES PROCEDURES No Procedure Records FoundRESULTS RESULTS DISCHARGE INSTRUCTION Observed: 11/12/2018 Status: F Source: [place] 7:19 AM [facility] REPOSITORY [facility] Medical Records Department [address] [place] [address] Instructions for Home/Discharge Instructions 11/11/18 1032 MR#: [id number] Acct: [id number] Name: VALENTE MAGANA Rep #: [id number] : 1955 63 From: Chas Childs PA-C PCP: Yoselyn Gastelum MD Status: ADM RICK Discharge Diet: No Restrictions Discharge Activity: May Not Drive May shower in (days): 1 - Turned dressing away from water Ice area for (Minutes): 20 - every hour while awake. Weight Bearing Status: Weight bearing as tolerated Elevate: Operative Extremity Additional Activity Instructions:: Wear elastic stockings for 2 weeks after your surgery. Call your doctor if your incision/area has: Continuous Slow Oozing, Sudden Increased Bleeding, Increased Pain/ Swelling, Increased Redness, Foul Smelling Discharge Call your doctor if you observe: Fever of 101 or Higher, Coldness, Increased Pain, Numbness or Tingling, Change in Color, Calf discomfort, Uncontrolled pain Remove Dressing in (days):: 3 - Okay to remove dressing on November 15, 2018 Additional Instructions: Follow [facility] postop instructions Allergies/Adverse Reactions: Allergies POLIO VACCINE Adverse Reaction (Uncoded 10/29/18 13:06) Other Medications to take at Discharge Atorvastatin Calcium [Lipitor] 10 mg PO QHS 10/29/18 Levothyroxine Sodium [Synthroid] 175 mcg PO DAILY 10/29/18 Potassium (Otc) [Potassium OTC] 99 mg PO DAILY 10/29/18 Acetaminophen [Tylenol Extra Strength] 1,000 mg PO Q8H PRN #90 tablet 11/12/18 Aspirin [Aspirin, Baby] 81 mg PO BIDCM #60 tab.chew 11/12/18 Famotidine [Pepcid] 20 mg PO DAILY #30 tablet 11/12/18 Meloxicam [Mobic] 7.5 mg PO BID #60 tablet 11/12/18 Oxycodone [Oxyir] 5 - 10 mg PO Q4H PRN PRN 7 Days tablet 11/12/18 Senna/Docusate Sodium [Senokot-S] 2 tablet PO BID #20 tablet 11/12/18 The following prescriptions were given: Acetaminophen [Tylenol Extra Strength] 1,000 mg PO Q8H PRN #90 tablet Famotidine [Pepcid] 20 mg PO DAILY #30 tablet Aspirin [Aspirin, Baby] 81 mg PO BIDCM #60 tab.chew Meloxicam [Mobic] 7.5 mg PO BID #60 tablet Senna/Docusate Sodium [Senokot-S] 2 tablet PO BID #20 tablet Primary Care Physician: Yoselyn Gastelum MD [Primary Care Provider] - Test Results: Test results from this visit will be discussed in further detail at your follow-up appointment, if applicable. Please Follow Up With: [facility] When: 11/15/18 @ 1:00 pm Please Follow Up With: Chas Childs PA-C When: 11/25/18 @ 3:45 pm 11/12/18 0719 <Electronically signed by Chas Childs PA-C> Date Chas Childs PA-C CC: Yoselyn Gastelum MD CBC-COMPLETE BLOOD CNT Collected: 11/12/2018 Status: F Source: [place] NO DIFF 6:23 AM [facility] REPOSITORY TYPE CODE TESTS RESULT OUT OF RANGE REFERENCE UNITS LAB L100.1000 4.4-11.0 K/mm3 Normal WBC 11.0 LAB L100.1200 4.6-6.2 M/mm3 Low RBC 4.07 LAB L100.1300 13.0-16.5 g/dl Low HGB 11.7 LAB L100.1400 40-54 % Low HCT 35.4 LAB L100.1500 80-94 fL Normal MCV 87.0 LAB L100.1600 27.0-32.0 pg Normal MCH 28.7 LAB L100.1700 32-36 g/gl Normal MCHC 33.1 LAB L100.1810 11.6-14.6 % Normal RDW CV 12.8 LAB L100.1820 35.1-43.9 fl Normal RDW SD 40.9 LAB L100.1900 150-450 K/mm3 Normal PLT 211 LAB L100.2000 6.2-12.0 fl Normal MPV 9.7 Performed By: #### L100.0500 #### [facility] [address] [facility] [place], [place], [id number] CBC-COMPLETE BLOOD CNT Collected: 11/11/2018 Status: F Source: [place] NO DIFF 5:32 AM [facility] REPOSITORY TYPE CODE TESTS RESULT OUT OF RANGE REFERENCE UNITS LAB L100.1000 4.4-11.0 K/mm3 Normal WBC 9.6 LAB L100.1200 4.6-6.2 M/mm3 Low RBC 3.95 LAB L100.1300 13.0-16.5 g/dl Low HGB 11.8 LAB L100.1400 40-54 % Low HCT 34.4 LAB L100.1500 80-94 fL Normal MCV 87.1 LAB L100.1600 27.0-32.0 pg Normal MCH 29.9 LAB L100.1700 32-36 g/gl Normal MCHC 34.3 LAB L100.1810 11.6-14.6 % Normal RDW CV 12.7 LAB L100.1820 35.1-43.9 fl Normal RDW SD 39.8 LAB L100.1900 150-450 K/mm3 Normal PLT 211 LAB L100.2000 6.2-12.0 fl Normal MPV 10.0 Performed By: #### L100.0500 #### [facility] [address] [facility] [place], [place], [id number] BASIC METABOLIC Collected: 11/11/2018 Status: F Source: [place] PROFILE (BMP) 5:32 AM [facility] REPOSITORY TYPE CODE TESTS RESULT OUT OF RANGE REFERENCE UNITS LAB L501.0100 74-106 mg/dL High GLU 139 Result Comment: Fasting Glucose result greater than or equal to 126 mg/dL suggests DIABETES MELLITUS per A.D.A. criteria. Please note revised GLUCOSE reference range effective 2018. LAB L501.1000 7-18 mg/dL Normal BUN 15 LAB L501.1100 0.70-1.30 mg/dL Normal CREAT,SERUM 1.23 Result Comment: The validity of the calculated GFR AND GFRAA in patients over 70 years has not been determined. Clinical correlation is essential. LAB L501.1110 >60 mL/min Normal EST GFR 64 Result Comment: Non- GFR Calc LAB L501.1115 >60 mL/min Normal EST GFR - AA 77 Result Comment: GFR Calc LAB L501.1255 ml/min Normal Estimated CRCL 65.12 LAB L501.1300 10-20 RATIO Normal BUN/CRE 12.2 LAB L501.2200 8.5-10 mg/dL Low .1 CA 8.0 LAB L501.5300 136-14 mmol/L Normal 5 NA 136 LAB L501.5600 3.5-5. mmol/L Normal 1 K 4.3 LAB L501.5900 98-107 mmol/L Normal CL 104 LAB L501.6100 21.0-3 mmol/L Normal 2.0 CO2 24.0 LAB L501.6200 5-15 Normal GAP 8 Performed By: #### L500.2500 #### [facility] [address] [facility] [place], [address] OPERATIVE REPORT Observed: 11/10/2018 Status: F Source: [place] 12:54 PM [facility] REPOSITORY [facility] Medical Records Department [address] [place] [address] Operative Report 11/10/18 1249 MR#: [id number] Acct: [id number] Name: VALENTE MAGANA Rep #: [id number] : 1955 63 From: Richie Perez MD PCP: Yoselyn Gastelum MD Status: REG [facility] Y Location: [place] [address] Report of Operation Date of Procedure: 11/10/18 Pre-Operative Diagnosis: Right knee primary osteoarthritis Post-Operative Diagnosis: Right knee primary osteoarthritis Surgery/Procedure Performed:: Right total knee replacement Description of Surgical Findings:: Stable knee with good patella tracking, press-fit, CR stoper: Denise Lanza Type of Anesthesia:: Spinal Anesthesiologist: Tyson Allison Special Medications: 2 g Ancef, 1 g TXA at incision, 1 g TXA closure, 10 mg Decadron, joint cocktail (5 mg Duramorph, 30 mL of 0.5% Ropivicaine, 1000 units of epinephrine, 30 mg of Toradol) Specimen's removed: Bony cuts Estimated Blood Loss (mL): 50 Fluids Replaced: 1000 mL crystalloid Description of Procedure: Implants used: 1. Franky size 6 press-fit triathlon cruciate retaining distal femoral component 2. [place] size 6 press-fit tibial baseplate 3. [place] X3 9 mm CS polyethylene 4. Franky X3 38 mm asymmetric patella Brief history operative indications: 63-year-old m with history of R knee osteoarthritis with radiographic findings with loss of joint space, osteophyte formation and subchondral sclerosis. Failed conservative measures as mentioned in the H AND P. Discussion of total knee arthroplasty as well as risk and benefits were discussed the patient including but not limited to blood loss, DVTs, PEs, neurovascular damage, general risk of anesthesia including loss of life, and stiffness or instability were discussed with patient. Patient demonstrated understanding and was able to sign informed consent. Procedure: On the date of procedure patient's R lower extremity was marked in the preoperative area. The patient was then taken back to the operating room where the patient was placed on the table in the supine position. All bony prominences were identified a well-padded. Anesthesia assumed control of the C-spine and airway and remained controlled throughout the remainder of the procedure. A tourniquet was placed on the R upper thigh and the leg was prepped in a sterile fashion. The surgeon then scrubbed at this time. Upon reentering the room R lower extremity was draped in a standard orthopedic fashion. A timeout was then called and everyone agreed upon the side, the site, the procedure to be performed, patient's identity and antibiotics given. Esmarch bandage was used to exsanguinate the extremity and the tourniquet was placed up to 250 mmHg with the knee in flexion. A midline skin incision was made and sharp dissection was taken down through skin subcutaneous tissue and fat. The standard medial parapatellar incision was made and the patella was subluxed laterally. The standard deep MCL release was done and the fat pad was resected. Next our attention was directed to the femur. Navigation pins were placed, navigation was registered. The distal femoral cutting block was pinned into place and 9 mm of distal femur resection was completed. The distal femoral cut was verified with navigation. The knee was then placed in deep flexion in the standard [employer] sizing guide was used to place the femoral component in 3 external rotation based on the posterior condyles. A size 6 4-in-1 cutting block was selected and pinned into place. The anterior cut was then made and checked for notching. The subsequent anterior chamfer cuts, posterior condylar cuts and posterior chamfer cuts were made while ensuring the MCL and LCL were protected. Our attention was then turned to the tibia where the [employer] tibial cutting guide was used to make the appropriate tibial cut 90 degrees from the mechanical axis. Navigation was then used to verify the cut. A size 6 tibial base plate was selected. the knee was flexed to 90 degrees and the soft tissues and posterior osteophytes were removed from the joint. 40 cc of the periarticular injection was injected into the posterior medial corner of the joint. The appropriate trials were then placed on the femur and tibia. A trial polyethylene was trialed to ensure proper balancing and stability of the knee. Patella tracking, was then verified and corrected appropriately as needed. The appropriate tibial internal rotation was then marked with a bovie. Our attention was then directed to the patella. The patella was everted and a flat resection was made. The lug holes were drilled and the patella trial was placed. Patellar tracking was checked and deemed appropriate. Once we were happy lug holes were drilled for the femur and trial components were removed. Cement was mixed at this time and the tourniquet was let down the tibia was subluxed and pinned into place and the keel was punched and the canal was reamed. Final components were verified and opened, and cement was mixed in a vacuum. [place] Simplex cement was used. The wound was copiously irrigated with normal saline. When the cement was ready the press-fit components were impacted into place starting with the tibia, femur and finally the patella cemented into place. The trial poly component was placed and the knee was placed in full extension. All excess cement was removed in the process. Once the cement had cured the tracking, alignment and balance were verified and a size 9 mm polyethylene component was placed. Once the final components were placed the wound was copiously irrigated with normal saline solution and the periarticular injection was given. The wound was closed in a layer griffin fashion using #1 vicryl interrupted sutures for the arthrotomy, 2-0 interrupted Vicryl suture for the subcuticular layer and ashwini for final skin closure. A sterile compressive dressing was then placed. The patient was then awakened from anesthesia, transferred to the [facility] and transferred to the PACU for recovery. Post op plan DVT ppx: ASA 81mg, thigh high compression stockings Follow up: in office in 2 weeks for wound check PT: to start POD #0 at hospital, outpatient PT should be arranged. Grafts/Implants Used: [place] press-fit triathlon total knee replacement - Complications None - Admit VTE Documentation VTE Present on Admission: No VTE Mechan Device Prophylaxis: SCD's, Thigh High NOMAN Hose VTE Pharm Prophylaxis ordered?: Yes 11/10/18 1254 <Electronically signed by Richie Perez MD> Date Richie Perez MD CC: Yoselyn Gastelum MD; Richie Perez MD Signed KNEE 1 OR 2 VIEWS Observed: 11/10/2018 Status: F Source: [place] 11:27 AM [facility] REPOSITORY [facility] Imaging Services [address] [place] [id number] Knee 1 or 2 Views MR#: [id number] Acct: [id number] Name: VALENTE MAGANA Rep #: [id number] : 1955 M 63 From: Brian Olivares MD PCP: Yoselyn Gastelum MD Status: [facility] Study: Knee 1 or 2 Views Date of Exam: 11/10/18 Exam# [id number] Ordering Dr: Richie Perez MD STUDY: X-RAY - RIGHT KNEE REASON FOR EXAM: Male, 63 years old. Status post total knee replacement. TECHNIQUE: 2 view(s) of the knee. COMPARISON: None. FINDINGS: Normal visualized distal femur. Normal visualized proximal tibia and fibula. Normal proximal tibiofibular articulation. The patient is status post total knee replacement. Good alignment. Postoperative soft tissue changes. RAD/Knee 1 or 2 Views IMPRESSION: Status post total knee replacement. There is good alignment. Postoperative soft tissue changes. Electronically Signed: Brian Olivares MD at 14:13 EST Tel [phone], Service support , CC: Yoselyn Gastelum MD; Richie Perez MD Registered Land Surveyor: Signed HISTORY AND PHYSICAL Observed: 10/29/2018 Status: F Source: [place] EXAM 10:39 PM [facility] REPOSITORY [facility] Medical Records Department [address] [place] [address] History and Physical 10/29/188 MR#: [id number] Acct: [id number] Name: VALENTE MAGANA Rep #: [id number] : 1955 63 From: Chas Childs PA-C PCP: Yoselyn Gastelum MD Status: PRE IN Y Location: [facility] History and Physical DATE OF SURGERY: 11/10/2018 SCHEDULED PROCEDURE: Right Total Knee Arthroplasty HISTORY OF PRESENT ILLNESS: This is a 63-year-old male who has been having ongoing pain in the right knee for several years duration. Patient states his pain is intermittent, dull, sharp, and sore. Patient states he has increased pain going up and down stairs, walking any amount of distance. He has difficult time with activities of daily living including shopping and leisure activities such as gardening. Patient has stumbled secondary to the right knee pain. Patient feels unsafe hiking, going on long walks, stairs, and quick movements. Patient has tried conservative measures consisting of rest, elevation with minimal relief. He has been through previous corticosteroid injections with only temporary relief. Patient has been through previous gel injection in 2018 with no significant relief in symptoms. Patient has been through formal physical therapy and home exercises. He has tried oral medications consisting of meloxicam minimal relief. Patient denies previous surgery on the right knee. After failing conservative measures and discussing all treatment options with Dr. Richie Perez, the patient does wish to proceed with a right total knee arthroplasty. Patient currently denies any chest pain, shortness of breath, fevers chills. Patient will be obtaining surgical clearance from his primary care physician. REVIEW OF SYSTEMS: ROS: Const: Denies anorexia, change in appetite, fever, difficulty sleeping, weight change. CV: Denies chest pain, heart murmur, irregular heartbeat and peripheral vascular disease. Resp: Denies asthma, cough, pneumonia, sleep apnea, shortness of breath, tuberculosis and wheezing. GI: Denies constipation, diarrhea, heartburn, nausea, rectal itching, bloody stools and vomiting. : Denies incontinence. Musculo: Denies leg swelling, pain, trouble walking and weakness. Skin: Denies Raynaud's, history of shingles and tattoo. Neuro: Denies ambulatory dysfunction, dizziness, numbness/tingling and tremor. Psych: Denies anxiety, depression, insomnia, mental illness and stress. Babak/Lymph: Denies anemia, bleeding/bruising tendency and past transfusion. Reviewed, no changes. PAST MEDICAL HISTORY: Advance Care Plan: No Advance Directives Effective Date: 02/22/2018 PMH: Medical Problems: Hypothyroidism, Hypercholesterolemia Accidents: LT Hand Ring Finger FX RT Shoulder Injury - WORK RELATED Surgical Hx: Tonsillectomy - (1964) [facility] RT Shoulder - [place] Shoulder Arthroscopy RT - (06/2013) [facility] LT Shoulder Arthroscopy - (03/24/2018) [facility] @ [facility] LT Shoulder - (05/2018) [email or web address] Anesthesia Complications: None Assistive Devices: Glasses Reviewed and updated. 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 Personal Habits: Smoking: Patient has never smoked.Cigarette Use: Never Smoked Cigarettes.E-Cigarette Use: Never used.Alcohol: Denies use.Drug Use: Denies Use.Enjoy Exercising: Never Exercises. Reviewed and updated. VITALS: Ht: 68 Wt: 285lb Wt k.276 BMI: 43.3 BP: 138/90 Pulse: 78 Resp: 16 T: 97.1 T: 36.2C ALLERGIES: Small Pox Vaccine - Nearly as A Child MEDICATIONS: Meloxicam 15 mg 1 by mouth every day, Levothyroxine Sodium 175 mcg 1 by mouth every day, Atorvastatin Calcium 10 mg 1 tab PO daily, Potassium 99 mg 1 tab PO daily PRE-OP EXAM: General appearance:NORMAL Other: Eyes: Conjunctivae and lids: NORMAL Pupils: ERR Ears, Nose, Mouth, and Throat: NORMAL Other: Inspection of lips, teeth and gums: NORMAL Other: Neck: Examination of neck: no masses noted. Respiratory: Assessment of respiratory effort: NORMAL Other: Auscultation of lungs: clear to auscultation no wheezes, rhonchi or rales. Cardiovascular: Auscultation of heart: regular rate and rhythm, no murmurs, gallops or rubs. Exam of carotid arteries: NORMAL Other: Gastrointestinal: Exam of abdomen: soft, nontender, nondistended bowel sounds present. PHYSICAL EXAMINATION: Patient walks with an antalgic gait. He has tenderness to palpation of the medial joint line of the right knee. Range of motion right knee: Lacks 5 of full extension to 115 of flexion. Stable to varus/valgus stress test. Sensation intact to light touch. Neurovascularly intact. IMAGING STUDIES: Previous x-rays on September 23, 2018 of the right knee reveal varus alignment with medial joint space narrowing, subchondral sclerosis, osteophyte formation consistent with moderate to severe osteoarthritis. MRI of the right knee does show reveal tricompartmental osteoarthritis with medial and lateral meniscus tears with medial compartment having full thickness loss of cartilage. IMPRESSION: 1. Tricompartmental right knee osteoarthritis 2. Hypothyroidism 3. Hypercholesterolemia PLAN: Dr. Richie Perez did discuss and review with the patient all treatment options including surgical versus nonsurgical options. Patient does wish to proceed with the above-stated procedure. Potential risks, benefits, and complications of the procedure were discussed in detail including but not limited to , infection, nerve and blood vessel damage, persistent pain, numbness, tingling, paresthesias, blood clot, pulmonary embolism, and requirement for possible further surgery. The patient expressed full understanding and has no further questions for the doctor. Patient does agree to proceed with the above-stated procedure and has signed the surgery consent form. This dictation was created using voice recognition software. Phonetic and/or grammatical errors may exist.. ___ I have re-examined the patient. There are no clinical changes since date of exam. ___ See progress notes for changes. ___ Dictated on admission Date: Time: Signature: 10/29/182238 <Electronically signed by Chas Childs PA-C> Date Chas Childs PA-C Cosigner Signature: Date (if applicable) CC: Chas REDMAN; Yoselyn Gastelum MD Signed CBC W/DIFF, AUTOMATED Collected: 10/29/2018 Status: F Source: [place] 1:15 PM [facility] REPOSITORY TYPE CODE TESTS RESULT OUT OF RANGE REFERENCE UNITS LAB L100.1000 4.4-11.0 K/mm3 Normal WBC 6.5 LAB L100.1200 4.6-6.2 M/mm3 Normal RBC 4.75 LAB L100.1300 13.0-16.5 g/dl Normal HGB 14.0 LAB L100.1400 40-54 % Normal HCT 40.4 LAB L100.1500 80-94 fL Normal MCV 85.1 LAB L100.1600 27.0-32.0 pg Normal MCH 29.5 LAB L100.1700 32-36 g/gl Normal MCHC 34.7 LAB L100.1810 11.6-14.6 % Normal RDW CV 12.7 LAB L100.1820 35.1-43.9 fl Normal RDW SD 38.8 LAB L100.1900 150-450 K/mm3 Normal PLT 245 LAB L100.2000 6.2-12.0 fl Normal MPV 9.6 LAB L100.2100 47-70 % Normal NEUT% 47.8 LAB L100.2200 19-41 % Normal LY% 37.7 LAB L100.2300 0-10 % Normal MONO% 9.6 LAB L100.2400 0-5 % Normal EO% 3.9 LAB L100.2500 0-1 % Normal BASO% 0.5 LAB L100.2550 0.0-0.9 % Normal IM GRAN % 0.500 Result Comment: IG% - Immature Granulocytes (promyelocytes, myelocytes and metamyelocytes) > 1% indicates that a LEFT SHIFT is Present. LAB L100.2620 2.0-7.7 X10 3/uL Normal Absolute Neut 3.1 LAB L100.2720 0.83-4.51 X10 3/ul Normal Absolute Lymph 2.44 Performed By: #### L100.0100 #### [facility] [address] [place], [place], [address] BASIC METABOLIC Collected: 10/29/2018 Status: F Source: [place] PROFILE (BMP) 1:15 PM [facility] REPOSITORY TYPE CODE TESTS RESULT OUT OF RANGE REFERENCE UNITS LAB L501.0100 74-106 mg/dL Normal GLU 93 Result Comment: Please note revised GLUCOSE reference range effective 2018. LAB L501.1000 7-18 mg/dL Normal BUN 15 LAB L501.1100 0.70-1.30 mg/dL Normal CREAT,SERUM 1.08 Result Comment: The validity of the calculated GFR AND GFRAA in patients over 70 years has not been determined. Clinical correlation is essential. LAB L501.1110 >60 mL/min Normal EST GFR 74 Result Comment: Non- GFR Calc LAB L501.1115 >60 mL/min Normal EST GFR - AA 89 Result Comment: GFR Calc LAB L501.1255 ml/min Normal Estimated CRCL 74.16 LAB L501.1300 10-20 RATIO Normal BUN/CRE 13.9 LAB L501.2200 8.5-10 mg/dL Normal .1 CA 8.8 LAB L501.5300 136-14 mmol/L Normal 5 NA 139 LAB L501.5600 3.5-5. mmol/L Normal 1 K 4.0 LAB L501.5900 98-107 mmol/L Normal CL 103 LAB L501.6100 21.0-3 mmol/L Normal 2.0 CO2 28.0 LAB L501.6200 5-15 Normal GAP 8 Performed By: #### L500.2500, L501.9520 #### [facility] [address] [place], [address] THYROID STIM HORMONE Collected: 10/29/2018 Status: F Source: [place] (TSH) 1:15 PM [facility] REPOSITORY TYPE CODE TESTS RESULT OUT OF RANGE REFERENCE UNITS LAB L501.9520 0.358-3.74 uIU/mL Normal TSH 1.43 Performed By: #### L500.2500, L501.9520 #### [facility] [facility] [place], [address] Observed: 10/29/2018 Status: F Source: [place] MRSA/SAID SCREEN 1:15 PM [facility] REPOSITORY MRSA/SAID SCRN S. AUREUS S. aureus Negative MRSA MRSA Negative Performed By: #### M100.651 #### [facility] [address] [place], [place], [address] CBC W/DIFF, AUTOMATED Collected: 06/10/2018 Status: F Source: [place] 12:09 PM [facility] REPOSITORY TYPE CODE TESTS RESULT OUT OF RANGE REFERENCE UNITS LAB L100.1000 4.4-11.0 K/mm3 Normal WBC 5.3 LAB L100.1200 4.6-6.2 M/mm3 Low RBC 4.34 LAB L100.1300 13.0-16.5 g/dl Normal HGB 13.0 LAB L100.1400 40-54 % Low HCT 37.4 LAB L100.1500 80-94 fL Normal MCV 86.2 LAB L100.1600 27.0-32.0 pg Normal MCH 30.0 LAB L100.1700 32-36 g/gl Normal MCHC 34.8 LAB L100.1810 11.6-14.6 % Normal RDW CV 12.7 LAB L100.1820 35.1-43.9 fl Normal RDW SD 39.0 LAB L100.1900 150-450 K/mm3 Normal PLT 238 LAB L100.2000 6.2-12.0 fl Normal MPV 9.3 LAB L100.2100 47-70 % Low NEUT% 45.7 LAB L100.2200 19-41 % Normal LY% 40.0 LAB L100.2300 0-10 % High MONO% 10.3 LAB L100.2400 0-5 % Normal EO% 3.6 LAB L100.2500 0-1 % Normal BASO% 0.2 LAB L100.2550 0.0-0.9 % Normal IM GRAN % 0.200 Result Comment: IG% - Immature Granulocytes (promyelocytes, myelocytes and metamyelocytes) > 1% indicates that a LEFT SHIFT is Present. LAB L100.2620 2.0-7.7 X10 3/uL Normal Absolute Neut 2.4 LAB L100.2720 0.83-4.51 X10 3/ul Normal Absolute Lymph 2.13 Performed By: #### L100.0100 #### [facility] [address] [place], [place], [address] BASIC METABOLIC Collected: 06/10/2018 Status: F Source: [place] PROFILE ([facility]) 12:09 PM [facility] REPOSITORY TYPE CODE TESTS RESULT OUT OF RANGE REFERENCE UNITS LAB L501.0100 74-106 mg/dL Normal GLU 102 Result Comment: Fasting Glucose result from 100 to 125 mg/dL suggests IMPAIRED HOMEOSTASIS per A.D.A. criteria. Please note revised GLUCOSE reference range effective 2018. LAB L501.1000 7-18 mg/dL Normal BUN 15 LAB L501.1100 0.70-1.30 mg/dL Normal CREAT,SERUM 1.02 Result Comment: The validity of the calculated GFR AND GFRAA in patients over 70 years has not been determined. Clinical correlation is essential. LAB L501.1110 >60 mL/min Normal EST GFR 79 Result Comment: Non- GFR Calc LAB L501.1115 >60 mL/min Normal EST GFR - AA 95 Result Comment: GFR Calc LAB L501.1300 10-20 RATIO Normal BUN/CRE 14.7 LAB L501.2200 8.5-10.1 mg/dL CA Normal 8.5 LAB L501.5300 136-145 mmol/L NA Normal 143 LAB L501.5600 3.5-5.1 mmol/L K Normal 3.9 Result Comment: Slight Hemolysis, Result may be falsely increased. LAB L501.5900 98-107 mmol/L High CL 108 LAB L501.6100 21.0-32.0 mmol/L Normal CO2 29.0 LAB L501.6200 5-15 Normal 6 GAP Performed By: #### L500.2500 #### [facility] [address] [facility] [place], [address] 12 LEAD ELECTROCARDIOGRAM Observed: 03/16/2018 Status: F Source: [place] 2:24 PM [facility] REPOSITORY [facility] Cardiovascular Services [address] [place] [address] 12 Lead EKG 03/13/18 1006 MR#: [id number] Acct: [id number] Name: VALENTE MAGANA Rep #: [id number] : 1955 62 From: Keith Demarco MD Attending Dr: Lloyd Huynh Status: REG CLI Ordering Dr: Lloyd Blackburn PA-C Date: 03/13/18 Location: LAB Sex: M C Admitted: Test Reason : PREOP Blood Pressure : / mmHG Vent. Rate : 071 BPM Atrial Rate : 071 BPM P-R Int : 126 ms QRS Dur : 094 ms QT Int : 398 ms P-R-T Axes : 008 003 014 degrees QTc Int : 432 ms Normal sinus rhythm Normal ECG Confirmed by KEITH DEMARCO MD ([id number]), digital editor FINESSE PINO ([id number]) on 03/16/2018 2:23:47 PM Referred By: Lloyd Blackburn Confirmed By:KEITH DEMARCO MD 03/16/18 1423 Date Keith Demarco MD CC: Yoselyn Gastelum MD; Lloyd REDMAN Signed CBC-COMPLETE BLOOD CNT Collected: 03/13/2018 Status: F Source: [place] NO DIFF 9:54 AM [facility] REPOSITORY TYPE CODE TESTS RESULT OUT OF RANGE REFERENCE UNITS LAB L100.1000 4.4-11.0 K/mm3 Normal WBC 5.7 LAB L100.1200 4.6-6.2 M/mm3 Normal RBC 4.65 LAB L100.1300 13.0-16.5 g/dl Normal HGB 13.4 LAB L100.1400 40-54 % Normal HCT 40.9 LAB L100.1500 80-94 fL Normal MCV 88.0 LAB L100.1600 27.0-32.0 pg Normal MCH 28.8 LAB L100.1700 32-36 g/gl Normal MCHC 32.8 LAB L100.1810 11.6-14.6 % Normal RDW CV 12.8 LAB L100.1820 35.1-43.9 fl Normal RDW SD 40.8 LAB L100.1900 150-450 K/mm3 Normal PLT 219 LAB L100.2000 6.2-12.0 fl Normal MPV 9.6 Performed By: #### L100.0500 #### [facility] [address] [place], [address] BASIC METABOLIC Collected: 03/13/2018 Status: F Source: [place] PROFILE (BMP) 9:54 AM [facility] REPOSITORY TYPE CODE TESTS RESULT OUT OF RANGE REFERENCE UNITS LAB L501.0100 74-106 mg/dL High GLU 116 Result Comment: Fasting Glucose result from 100 to 125 mg/dL suggests IMPAIRED HOMEOSTASIS per A.D.A. criteria. Please note revised GLUCOSE reference range effective 2018. LAB L501.1000 7-18 mg/dL High BUN 19 LAB L501.1100 0.70-1.30 mg/dL Normal CREAT,SERUM 1.21 Result Comment: The validity of the calculated GFR AND GFRAA in patients over 70 years has not been determined. Clinical correlation is essential. LAB L501.1110 >60 mL/min Normal EST GFR 65 Result Comment: Non- GFR Calc LAB L501.1115 >60 mL/min Normal EST GFR - AA 78 Result Comment: GFR Calc LAB L501.1300 10-20 RATIO Normal BUN/CRE 15.7 LAB L501.2200 8.5-10.1 mg/dL Low CA 8.2 LAB L501.5300 136-145 mmol/L NA Normal 144 LAB L501.5600 3.5-5.1 mmol/L K Normal 4.2 LAB L501.5900 98-107 mmol/L High CL 111 LAB L501.6100 21.0-32.0 mmol/L Normal CO2 27.0 LAB L501.6200 5-15 Normal GAP 6 Performed By: #### L500.2500 #### [facility] [address] [place], [address] XR SHOULDER MINIMUM 2 Observed: 02/01/2018 Status: F Source: [employer] VIEWS LEFT 4:20 PM [facility] REPOSITORY ORIGINAL XR SHOULDER 4 VIEWS LEFT, Clinical Statement: pain Comparison: None Findings: No acute fracture, lytic process or periosteal reaction is seen in the visualized bones. No erosive changes or soft tissue calcification. There is moderate AC joint arthrosis. IMPRESSION: No acute skeletal abnormality. AC joint arthrosis. Interpreted By: Leobardo Falk MD Preliminary Report By: Leobardo Falk MD Electronically Signed By: Leobardo Falk MD Dictated Date: 02/01/2018 11:44:53 PM Prelim Date: 02/01/2018 11:44:53 PM Sign Date: 02/01/2018 11:45:40 PM AST Collected: 01/23/2018 Status: F Source: [employer] 7:20 AM [facility] REPOSITORY TYPE CODE TESTS RESULT OUT OF RANGE REFERENCE UNITS LAB AST(LOINC) 10-40 IU/L AST/SGOT 27 Performed By: #### AST, LIPID, TSH #### [address] [address] LIPID Collected: 01/23/2018 Status: F Source: [employer] 7:20 AM [facility] REPOSITORY TYPE CODE TESTS RESULT OUT OF REFERENCE UNITS RANGE LAB CHOL(LOINC 131-200 mg/dL ) Cholesterol High 203 Result Comment: Cholesterol Reference Interval: Less than 200 Desirable 200-239 Borderline high risk 240 and above High risk LAB TRIG(LOINC) 40-150 mg/dL Triglycerides High 608 Result Comment: Triglyceride Reference Interval: Less than 150 Normal 150-199 Borderline high risk 200-499 High risk 500 or higher Very high risk LAB HD(LOINC) 35-90 mg/dL HDL Low Cholesterol 32 Result Comment: HDL Reference Interval: Less than 40 Low - high risk 60 or above Optimal/lowers risk LAB LDL(LOINC) 0-130 mg/dL LDL Cholesterol Not Valid Result Comment: Triglyceride >400 invalidates the calculated LDL. LDL is a calculated result and requires a 12-hr fast. LDL Reference Interval: Less than 100 Optimal 100-129 Near or above optimal 130-159 Borderline high risk 160-189 High risk 190 and above Very high risk Performed By: #### AST, LIPID, TSH #### [address] [place], [place] [address] TSH Collected: 01/23/2018 Status: F Source: [facility] 7:20 AM [facility] REPOSITORY TYPE CODE TESTS RESULT OUT OF RANGE REFERENCE UNITS LAB TSH(LOINC) 0.27-4.20 mcIU/mL TSH 1.00 Performed By: #### AST, LIPID, TSH #### [address] [address] ALLERGIES ALLERGIES DATE TYPE / CODE NAME / CODE REACTION SEVERITY SOURCE 10/29/2018 Miscellaneous POLIO VACCINE Other Unknown [place] [id number] [place] ENCOUNTERS ENCOUNTERS ADMIT/DISCHARGE ACCOUNT NUMBER ADMITTING ENCOUNTER LOCATION SOURCE CLASS 12/21/2018/12/21/19 [id number] Ambulatory BBuilding:[address] Repository 11/10/2018/11/12/20 [id number] [facility] [address] ding:[id number] Repository : PL986Bwe: 1 06/10/2018 [id number] Ambulatory General acute hospital ding:LAB Repository 03/13/2018 [id number] [facility] Rep[facility] 03/13/2018 [id number] Ambulatory General acute hospital ding:LAB Repository 02/01/2018/02/02/20 [id number] Ambulatory [address] ding:[facility] Repository 01/23/2018/01/23/[id number] ding:TOAN [facility] Repository PAYERS PAYERS ENCOUNTER GUARANTOR PAYER SUBSCRIBER SOURCE 12/21/2018 VALENTE Patel Primary Insurance:UMR VALENTE Amanda [facility] HARTZLERDOB: INSCOPolicy Number: HARTZLERDOB: [facility] [id number] Repository [address] [place] Date:2018-[address] [place] [place] [id number], [place] [address]Evs: ([phone]) Name:[facility] [place] [address] [address]Pqtu [address]Piy: () [place], [place] [phone]: [phone]) () 000-0000 () 11/10/2018 VALENTE Patel Primary VALENTE A [place] [id number] N Insurance:ANTHEMPolicy HARTZLERDOB: Community [place] Number: [id number] [id number] Repository [address]Lgd: 330) Date:[id number] [phone] () [id number] [place] [address] 245[address]NR: 11/10/2018 Secondary NOT GIVENUNK [place] Insurance:SELF PAY [facility] Number: Effective Repository Date:2018-11-10 06/10/2018 VALENTE Patel Primary VALENTE A [place] [id number] N Insurance:ANTHEMPolicy HARTZLERDOB: Community [place] Number: [id number] [id number] Repository [address]Brc: 330) Date:1715-09-05BG [phone] () [id number] [place] [address] 585[address]BY: 06/10/2018 Secondary NOT GIVENUNK [place] Insurance:SELF PAY [facility] Number: Effective Repository Date:2018-06-10 03/13/2018 VALENTE Patel Primary VALENTE Patel [place] [id number] N Insurance:ANTHEMPolicy HARTZLERDOB: Community [place] Number: [id number] [id number] Repository [address]Enk: ([phone]) Date:7720-53-58ZS [phone] () [place]ZKQWKEU, [place] [address]PF: 03/13/2018 Secondary NOT GIVENUNK [place] Insurance:SELF PAY [facility] Number: Effective Repository Date:2018-03-13 03/13/2018 VALENTE A Primary VALENTE A [place] [id number] N Insurance:ANTHEMPolicy HARTZLERDOB: Community [place] Number: [id number], [place] [id number] Repository [address]Lmo: ([phone]) Date:0255-34-27FW [phone] () [id number], [place] [address]PG: 03/13/2018 Secondary NOT GIVENUNK [place] Insurance:SELF PAY [facility] Number: Effective Repository Date:2018-03-13 02/01/2018 VALENTE Patel Primary VALENTE Patel [facility] Insurance:ANTHEM BLUE HARTZLERDOB: [facility] [id number] Repository [address] [place] Number: [address] [place], [place] [id number] [place], [place] [address]Tsk: ([phone]) Date:2018-02-01Tel: () [phone] Name:DEYSI LAMBERT ()Tel: 000 240430Fftsjae, [place] 000-0000 () [address]MM: 01/23/2018 VALENTE Patel Primary VALENTE Patel [facility] HARTZLERDOB: Insurance:ANTHEM BLUE HARTZLERDOB: [facility] [id number] [employer] [id number] Repository [address] [place] Number: [address] KEVINMYLESDRU BRENNAN [id number] KEVINMYLESDRU BRENNAN [address]Tmd: ([phone]) Date:2018-01-23 12106Inw: () [id number] [phone] Name:DEYSI LAMBERT ()Tel: ([phone] 000-0000 () [address]NF:
--- OUTSIDE RECORDS SUMMARY | 2018-12-27 08:51 | XMS RPT_ITS ---
[...] Primary Care Unavailable Richie Perez Admitting Unavailable Lloyd Blackburn Attending Unavailable Lloyd Blackburn Referring Unavailable Yoselyn Gastelum Primary Care Unavailable Keith Demarco Attending Unavailable Lloyd Blackburn Referring Unavailable Memo Burnette Attending Unavailable Memo Burnette Referring Unavailable Yoselyn Gastelum Primary Care Unavailable PROBLEMS PROBLEMS DATE TYPE CONDITION / CODE ATTENDING STATUS SOURCE 11/12/2018 Unknown Z96.651 - Presence Richie Perez Active [place] of right artificial Community knee joint / Hospital Z96.651(ICD-10) Repository 06/10/2018 Unknown Z01.818 - Encounter Vasile Memo Active [place]ice for other Community preprocedural Hospital examination / Repository Z01.818(ICD-10) PROCEDURES PROCEDURES No Procedure Records FoundRESULTS RESULTS DISCHARGE INSTRUCTION Observed: 11/12/2018 Status: F Source: EUNICE 7:19 AM [facility] REPOSITORY [facility] Medical Records Department [address] [place] [address] Instructions for Home/Discharge Instructions 11/11/18 1032 MR#: [id number] Acct: [id number] Name: VALENTE MAGANA Rep #: [id number] : 1955 63 From: Chas Childs PA-C [...] on November 15, 2018 Additional Instructions: Follow [facility] postop instructions Allergies/Adverse Reactions: Allergies POLIO [...] F Source: EUNICE NO DIFF 6:23 AM [facility] REPOSITORY TYPE CODE TESTS RESULT OUT OF [...] MPV 9.7 Performed By: #### L100.0500 #### [facility] [address] [facility]. [place], [place], [id number] CBC-COMPLETE BLOOD CNT Collected: 11/11/2018 Status: F Source: EUNICE NO DIFF 5:32 AM [facility] REPOSITORY TYPE CODE TESTS RESULT OUT OF [...] MPV 10.0 Performed By: #### L100.0500 #### [facility] [address] [facility]. [place], [place], [id number] BASIC METABOLIC Collected: 11/11/2018 Status: F Source: EUNICE PROFILE (BMP) 5:32 AM [facility] REPOSITORY TYPE CODE TESTS RESULT OUT OF [...] GAP 8 Performed By: #### L500.2500 #### [facility] [address] [facility] [place], [address] OPERATIVE REPORT Observed: 11/10/2018 Status: F Source: YPSILANTI 12:54 PM [facility] REPOSITORY [facility] Medical Records Department [address] [place] [address] Operative Report 11/10/18 1249 MR#: [id number] Acct: [id number] Name: VALENTE MAGANA Rep #: [id number] : 1955 63 From: Richie Perez MD PCP: Yoselyn Gastelum MD Status: REG [facility] Y Location: [place] [address] Report of Operation Date of Procedure: 11/10/18 Pre-Operative Diagnosis: Right knee primary osteoarthritis Post-Operative Diagnosis: Right knee primary osteoarthritis Surgery/Procedure Performed:: Right total knee replacement Description of Surgical Findings:: Stable knee with good patella tracking, press-fit, CR amortization clerk: Denise Lanza Type of Anesthesia:: Spinal Anesthesiologist: [...] triathlon cruciate retaining distal femoral component 2. Bagwell size 6 press-fit tibial baseplate 3. Bagwell X3 9 mm CS polyethylene 4. Franky [...] placed in deep flexion in the standard [employer] sizing guide was used to place the [...] then turned to the tibia where the [employer] tibial cutting guide was used to make [...] and cement was mixed in a vacuum. Bagwell Simplex cement was used. The wound was [...] then awakened from anesthesia, transferred to the [facility] and transferred to the PACU for recovery. Post op plan DVT ppx: ASA 81mg, thigh high compression stockings Follow up: in office in 2 weeks for wound check PT: to start POD #0 at hospital, outpatient PT should be arranged. Grafts/Implants Used: Bagwell press-fit triathlon total knee replacement - Complications None - Admit VTE Documentation VTE Present on Admission: No VTE Mechan Device Prophylaxis: SCD's, Thigh High NOMAN Hose VTE Pharm Prophylaxis ordered?: Yes 11/10/18 1254 <Electronically signed by Richie Perez MD> Date Richie Perez MD CC: Yoselyn Gastelum MD; Richie Perez MD Signed KNEE 1 OR 2 VIEWS Observed: 11/10/2018 Status: F Source: YPSILANTI 11:27 AM [facility] REPOSITORY [facility] Imaging Services [address] [place] [address] Knee 1 or 2 Views MR#: [id number] Acct: [id number] Name: VALENTE MAGANA Rep #: [id number] : 1955 M 63 From: Brian Olivares MD PCP: Yoselyn Gastelum MD Status: [facility] Study: Knee 1 or 2 Views Date of Exam: 11/10/18 Exam# [id number] Ordering Dr: Richie Perez MD STUDY: X-RAY [...] Brian Olivares MD at 14:13 EST Tel [phone], Service support , CC: Yoselyn Gastelum MD; Richie Perez MD Facility Maintenance Supervisor: Signed HISTORY AND PHYSICAL Observed: 10/29/2018 Status: F Source: YPSILANTI EXAM 10:39 PM [facility] REPOSITORY [facility] Medical Records Department [address] [place] [address] History and Physical 10/29/188 MR#: [id number] Acct: [id number] Name: VALENTE MAGANA Rep #: [id number] : 1955 63 From: Chas Childs PA-C PCP: Yoselyn Gastelum MD Status: PRE IN Y Location: [facility] History and Physical DATE OF [...] - [place] Shoulder Arthroscopy RT - (06/2013) [facility] LT Shoulder Arthroscopy - (03/24/2018) [facility] LT Shoulder - (05/2018) [email or web address] Anesthesia Complications: None Assistive Devices: Glasses Reviewed and updated. 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 Personal Habits: Smoking: [...] 10/29/2018 Status: F Source: EUNICE 1:15 PM [facility] REPOSITORY TYPE CODE TESTS RESULT OUT OF [...] Lymph 2.44 Performed By: #### L100.0100 #### [facility] [address] [place], [place], [address] BASIC METABOLIC Collected: 10/29/2018 Status: F Source: EUNICE PROFILE (BMP) 1:15 PM [facility] REPOSITORY TYPE CODE TESTS RESULT OUT OF [...] 8 Performed By: #### L500.2500, L501.9520 #### [facility] [address] [place], [address] THYROID STIM HORMONE Collected: 10/29/2018 Status: F Source: YPSILANTI (TSH) 1:15 PM [facility] REPOSITORY TYPE CODE TESTS RESULT OUT OF RANGE REFERENCE UNITS LAB L501.9520 0.358-3.74 uIU/mL Normal TSH 1.43 Performed By: #### L500.2500, L501.9520 #### [facility] [place], [address] Observed: 10/29/2018 Status: F Source: YPSILANTI MRSA/SAID SCREEN 1:15 PM [facility] REPOSITORY MRSA/SAID SCRN S. AUREUS S. aureus Negative MRSA MRSA Negative Performed By: #### M100.651 #### [facility] [address] [place], [place], [address] CBC W/DIFF, AUTOMATED Collected: 06/10/2018 Status: F Source: EUNICE 12:09 PM [facility] REPOSITORY TYPE CODE TESTS RESULT OUT OF [...] Lymph 2.13 Performed By: #### L100.0100 #### [facility] [address] [place], [place], [address] BASIC METABOLIC Collected: 06/10/2018 Status: F Source: YPSILANTI PROFILE ([facility]) 12:09 PM [facility] REPOSITORY TYPE CODE TESTS RESULT OUT OF [...] 6 GAP Performed By: #### L500.2500 #### [facility] [address] [facility] [place], [address] 12 LEAD ELECTROCARDIOGRAM Observed: 03/16/2018 Status: F Source: YPSILANTI 2:24 PM [facility] REPOSITORY [facility] Cardiovascular Services [address] [place] [address] 12 Lead EKG 03/13/18 1006 MR#: [id number] Acct: [id number] Name: VALENTE MAGANA Rep #: [id number] : 1955 62 From: Keith Demarco MD [...] ECG Confirmed by KEITH DEMARCO MD ([id number]), manuscript editor FINESSE PINO ([id number]) on 03/16/2018 2:23:47 PM Referred By: Lloyd Blackburn Confirmed By:KEITH DEMARCO MD 03/16/18 1423 Date Keith Demarco MD CC: Yoselyn Gastelum MD; Lloyd REDMAN Signed CBC-COMPLETE BLOOD CNT Collected: 03/13/2018 Status: F Source: EUNICE NO DIFF 9:54 AM [facility] REPOSITORY TYPE CODE TESTS RESULT OUT OF [...] MPV 9.6 Performed By: #### L100.0500 #### [facility] [address] [place], [address] BASIC METABOLIC Collected: 03/13/2018 Status: F Source: EUNICE PROFILE (BMP) 9:54 AM [facility] REPOSITORY TYPE CODE TESTS RESULT OUT OF [...] GAP 6 Performed By: #### L500.2500 #### [facility] [address] [place], [address] XR SHOULDER MINIMUM 2 Observed: 02/01/2018 Status: F Source: Augmate VIEWS LEFT 4:20 PM [facility] REPOSITORY ORIGINAL XR SHOULDER 4 VIEWS LEFT, [...] PM AST Collected: 01/23/2018 Status: F Source: [place] 7:20 AM [facility] REPOSITORY TYPE CODE TESTS RESULT OUT OF RANGE REFERENCE UNITS LAB AST(LOINC) 10-40 IU/L AST/SGOT 27 Performed By: #### AST, LIPID, TSH #### [address] [address] LIPID Collected: 01/23/2018 Status: F Source: Augmate 7:20 AM [facility] REPOSITORY TYPE CODE TESTS RESULT OUT OF [...] Performed By: #### AST, LIPID, TSH #### [place] [address] [place], [place] [address] TSH Collected: 01/23/2018 Status: F Source: [facility] 7:20 AM [facility] REPOSITORY TYPE CODE TESTS RESULT OUT OF RANGE REFERENCE UNITS LAB TSH(LOINC) 0.27-4.20 mcIU/mL TSH 1.00 Performed By: #### AST, LIPID, TSH #### [place] [address] [place], [place] [address] ALLERGIES ALLERGIES DATE TYPE / CODE NAME / CODE REACTION SEVERITY SOURCE 10/29/2018 Miscellaneous POLIO VACCINE Other Unknown E[place]ice Allergy/[id number](S [facility]) Hospital Repository ENCOUNTERS ENCOUNTERS ADMIT/DISCHARGE ACCOUNT NUMBER ADMITTING ENCOUNTER LOCATION SOURCE CLASS 12/21/2018/12/21/19 [id number] Ambulatory BBuilding:[address] Repository 11/10/2018/11/12/20 [id number] [facility] [address] ding:[id number] Repository : [id number]: 1 06/10/2018 [id number] Ambulatory [facility] ding:LAB Repository 03/13/2018 [id number] Ambulatory [facility] ding:LAB Repository 03/13/2018 [id number] Ambulatory BMSBuilding: [facility] Repository 02/01/2018/02/02/20 [id number] Ambulatory [address] ding:[facility] Repository 01/23/2018/01/23/[id number] ding:TOAN [facility] Repository PAYERS PAYERS ENCOUNTER GUARANTOR PAYER SUBSCRIBER SOURCE 12/21/2018 VALENTE Patel Primary Insurance:UMR VALENTE Amanda [facility] HARTZLERDOB: INSCOPolicy Number: HARTZLERDOB: [facility] [place] [id number] Repository [address] [place] Date:2018-12-[address] [place], [place] 8327-12-44[place], [place] [address]Ufa: ([phone]) Name:[facility] [address] [address]Kwx: () [place], [place] [phone]: [phone]) () 000-0000 () 11/10/2018 VALENTE Patel Primary VALENTE A [place] [id number] [address] Insurance:ANTHEMPolicy HARTZLERDOB: Community [place] Number: [id number], [place] [id number] Repository [address]Yoy: 330) Date:2915-48-85KO [phone] () [id number] [place] [address]AZ: 11/10/2018 Secondary NOT GIVENUNK [place] Insurance:SELF PAY [facility] Number: Effective Repository Date:2018-11-10 06/10/2018 VALENTE Patel Primary VALENTE A [place] [id number] [address] Insurance:ANTHEMPolicy HARTZLERDOB: Community [place] Number: [id number], [place] [id number] Repository [address]Gfn: 330) Date:2061-42-02BX [phone] () [id number] [place] [address]RQ: 06/10/2018 Secondary NOT GIVENUNK [place] Insurance:SELF PAY [facility] Number: Effective Repository Date:2018-06-10 03/13/2018 VALENTE Patel Primary VALENTE Patel [place] [id number] N Insurance:ANTHEMPolicy HARTZLERDOB: Community [place] Number: [id number], [place] [id number] Repository [address]Zkz: ([phone]) Date:7273-12-73IV [phone] () [id number], [place] [address]KF: 03/13/2018 Secondary NOT GIVENUNK [place] Insurance:SELF PAY [facility] Number: Effective Repository Date:2018-03-13 03/13/2018 VALENTE A Primary VALENTE A [place] [id number] [address] Insurance:ANTHEMPolicy HARTZLERDOB: Community [place] Number: [id number], [place] [id number] Repository [address]Dya: ([phone]) Date:2394-33-23AM [phone] () [id number], [place] [address]KK: 03/13/2018 Secondary NOT GIVENUNK [place] Insurance:SELF PAY [facility] Number: Effective Repository Date:2018-03-13 02/01/2018 VALENTE Patel Primary [facility]el [facility] Insurance:ANTHEM BLUE HARTZLERDOB: [facility] [place] [facility] [id number] Repository [address] [place] Number: [address] [place], [place] [id number] [place], [place] [address]Hac: ([phone]) Date:2018-02-01Tel: () [id number] [phone] Name:DEYSI LAMBERT ()Tel: 000 [id number], [place] 000-0000 () [address]OO: 01/23/2018 VALENTE Patel Primary VALENTE Patel [facility] HARTZLERDOB: Insurance:ANTHEM BLUE HARTZLERDOB: [facility] [place] [id number] [employer] [id number] Repository [address] [place] Number: [address] [place]EVINMYLESDRU BRENNAN [id number] KEVINMYLESDRU BRENNAN [address]Nyl: ([phone]) Date:2018-01-23 [id number]: () [id number] [phone] Name:DEYSI LAMBERT ()Tel: [phone] [place] 000-0000 () [address]JJ:
== END 2018-11-12 16:32 | disposition home or self-care (01) ==
LOC: SDC 11-11 09:52
PROVIDERS: Admitting Provider Specialist; Family Provider Family Medicine; PCP Family Medicine; Referring Provider Specialist; Visit Provider Specialist
PROC: (CPT 27447; principal; 2018-11-10 11:15)
DX: M17.11 Unilateral primary osteoarthritis, right knee (principal); E78.00 Pure hypercholesterolemia, unspecified; Z79.899 Other long term (current) drug therapy; E03.9 Hypothyroidism, unspecified
CPT/HCPCS: 27447; 64447; 36415; 73560; 80048; 84443; 85025; 85027; 87081; 96361; 96365; 96366; 96375; 96376; 97110; 97161; 97165; 97530; 99218; 99251; C1776; J7120; A4216; G0378; G0379; G0463

== ENCOUNTER 2019-02-02 05:16 | Day surgery (SDC) | payer OTHER, SELFPAY ==
[2018-11-10 16:42] VITALS: BMI 41.0
[2019-02-02] VITALS (7 sets, daily range): BP systolic 134–161; BP diastolic 86–104; PULSE 75–84; RESP 16–18; TEMP 36.6–37.2; O2SAT 99–100; BMI 40.6
--- NOTE | 2019-02-02 07:22 | PCM.OPRPT ---
Report of Operation Date of Procedure: 02/02/19 Pre-Operative Diagnosis: Arthrofibrosis right total knee Post-Operative Diagnosis: Arthrofibrosis right total knee Surgery/Procedure Performed:: Manipulation under anesthesia right total knee Description of Surgical Findings:: Pre-manipulation flexion to 85 degrees, postmanipulation flexion to 115 director talent acquisition: None Type of Anesthesia:: General Anesthesiologist: Lucas Mina Description of Procedure: Brief history operative indications: 63-year-old male with total knee replacement roughly 3 months ago. Patient progressed slowly with physical therapy. He was given multiple chances to advance with physical therapy. Ultimately around 3 months postop he had only 85-90 degrees flexion in the office. We discussed risks and benefits of manipulation under anesthesia including risk of the anesthesia and fracture. Patient demonstrated understanding was able signed informed consent. Procedure: On the date of procedure patient's right lower extremity is marked in the preoperative area. They were brought back to the operating room where they were left on her gurney. Anesthesia was administered and anesthesia assumed control her C-spine airway and remaining control throughout the main procedure. Once patient was comfortably asleep the preoperative range of motion was measured at 85 degrees flexion, extension was good. Gentle pressure was placed on the knee with the hip in flexion scar tissue was broken up and the knee was flexed 115 ?. At the conclusion of the manipulation the knee is placed in extension lateral suprapatellar portal was identified and a 18-gauge needle was used to place an intra-articular cortisone injection containing 2 mL of betamethasone and 10 mL of 0.5% Marcaine with epinephrine. Patient tolerated the procedure well was awakened by anesthesia and transferred back to recovery. Postoperative plan: Patient will proceed with physical therapy this afternoon. They gerardo start a prednisone Dosepak tomorrow. They will have physical therapy every day for 2 weeks and follow-up in 2 weeks. Montelukast will be written for 6 weeks. - Complications NONE - Admit VTE Documentation VTE Present on Admission: No VTE Mechan Device Prophylaxis: SCD's VTE Pharm Prophylaxis ordered?: No Reason prophylaxis not ordered:: Treatment Not Indicated
[2019-02-02] MEDS: Ketorolac 30 MG/ML Syringe IV (08:02)
== END 2019-02-02 09:05 | disposition home or self-care (01) ==
LOC: SDC 05:21 → AC 05:22
PROVIDERS: Family Provider Family Medicine; PCP Family Medicine; Referring Provider Specialist; Visit Provider Specialist
PROC: (CPT 27570; principal; 2019-02-02 07:10)
DX: M24.661 Ankylosis, right knee (principal); T84.82XA Fibrosis due to internal orthopedic prosthetic devices, implants and grafts, initial encounter; E03.9 Hypothyroidism, unspecified; E78.00 Pure hypercholesterolemia, unspecified; Z96.651 Presence of right artificial knee joint; Z79.1 Long term (current) use of non-steroidal anti-inflammatories (NSAID); Z79.891 Long term (current) use of opiate analgesic; Z79.899 Other long term (current) drug therapy
CPT/HCPCS: 20610; 27570; J7120; J2405

== ENCOUNTER 2019-03-28 09:30 | Outpatient (RCR) | payer OTHER, SELFPAY ==
[2018-11-10 16:42] VITALS: BMI 41.0
[2019-02-02 05:43] VITALS: BMI 40.6
--- NOTE | 2019-02-07 08:36 | HP.PTEVAL_ITS ---
Patient's Visit Information VALENTE MAGANA is a 63 year old M referred to Physical Therapy by Richie Perez MD with a diagnosis of R TKA with subsequent JOHN. Date of Evaluation: 02/07/19 Physical Therapist: Memo Mills DPT - Visit Plan Frequency: 5x /Week Duration: 2 Weeks Plan: Start with biking, ROM, end range stretching. Educated to the patient the importance of consistency with stretching and ROM. May add in vaso for edema control. - Subjective Findings: Pt. is here today for his initial evaluation after diagnosis of JOHN today, after R TKA in Oct. Pt. reports he was doing okay, but never really got his ROM back. He reports having AROM of ~70deg prior to JOHN. Pt. reports no real pain this date and he thinks he can already move his leg better than before. He denies N/T in either LE. Pt. reports increaed swelling though. Pt. is retired. He reports being able to compelte most ADLs, but wants to be more active and his limited knee ROM ahas been limiting him. - Pain R knee Pain Intensity (Out of 10): 2 Pain Intensity Range: 0, 6 - Objective POSTURE: Pt. lacks R TKE instance, has increaed L wt. shift. Normal iliac crest heights. PALPATION: Pt. has well healed incision. Pt. has negative homans signs in bilateral calves, he is wears TEDs. Pt. reports no pain with palpation. Non pitting edema noted. NEURO: All intact without isssues. ROM: R knee- 0-5-93deg. PROM. Pt. had progressively increaed ROM with manual stretching. MMT: LLE 5/5 throughout. RLE- ankle 5/5 throughout; knee- ext 4/5, flexion 4/5; hip- flexion 4+/5, abd 4+/5, ext 4+/5. GAIT: Pt. ambulates with SPC with proper mechanics. Pt. lacks TKE in stance phase of gait. Pt. has reduced swing phase as well. STAIRS: Step to patttern with RLE loaded. - Goals Goal 1:: Pt. to be I with HEP Goal Time Frame: 4-6 Weeks Goal 2:: Pt. to have increased R knee ROM to 0-0-120deg AROM. Goal Time Frame: 4-6 Weeks Goal 3:: Pt. to ambulate without AD with normal gait pattern without increase in symptoms. Goal Time Frame: 4-6 Weeks Goal 4:: Pt. to have increased RLE strength by 1/2 grade of all effected musculature. Goal Time Frame: 4-6 Weeks Goal 5:: Pt. to resume all recreational activties without limitatons. Goal Time Frame: 4-6 Weeks - Rehabilitation Potential Physical Therapy Diagnosis: Pt. had a JOHN this date after hypombility S/P R TKA. Pt. has minimal pain at rest this date. Pt. continues to have hypombility, but a ppears to be motivated to improve. Pt. Rehabilitation Potential: Excellent - Anticipated Interventions Patient/Client Instruction: Educate patient on: Condition, Plan of Care, Risk Factors, Benefits of Fitness Program For the Purpose of:: To foster healthy habits, To improve decision making, To facilitate caregiver knowledge, To improve self management, To prevent re- injury, To improve ability to perform tasks related to life management, To improve tolerance to ADL's Therapeutic Exercise to Include: Strength training, Power training, Endurance training, Postural training, Flexibilty training, Gait and locomotor training, via Neurocom Balance Mas, Active ROM For the Purpose of:: To decrease pain, To decrease swelling/inflammation, To increase ROM, To improve nutrient delivery to tissue, To increase oxygenation perfusion, To improve muscle performance and motor function, To improve ability to perform ADL's, To increase tolerance to activity/condition/position, To improve gait and locomotor functions, To improve health of tissue, To decrease soft tissue restriction, To increase flexibility/ROM Manual Therapy Techniques to Include: Mobilization, Passive ROM For the Purpose of:: To decrease pain, To decrease swelling/inflammation, To increase ROM, To improve muscle performance and motor function Cryotherapy (ice pack, ice massage): Yes Vasopneumatic device: Yes For the Purpose of:: To decrease pain, To decrease swelling/inflammation, To increase ROM Thank you for the opportunity to evaluate your patient. For Medicare and Medicare HMO plans, please review the plan of care and approve it. It will need to be FAXED BACK to us at [phone] for Medicare purposes. For Medicare only, by signing this I certify the plan of care. Please let me know if there are questions or concerns regarding this plan of care. Physician Signature: Date:
--- NOTE | 2019-08-04 14:48 | HP.PTDCNRP_ITS ---
HP - Discharge Summary (1) - Patient Information VALENTE MAGANA was seen in my office for initial evaluation on 02/07/19. The following Plan of Care was established for this patient: Initial Frequency: 5x /Week Initial Duration: 2 Weeks - Anticipated Interventions Patient/Client Instruction: Educate patient on: Condition, Plan of Care, Risk Factors, Benefits of Fitness Program For the Purpose of:: To foster healthy habits, To improve decision making, To facilitate caregiver knowledge, To improve self management, To prevent re- injury, To improve ability to perform tasks related to life management, To improve tolerance to ADL's Therapeutic Exercise to Include: Strength training, Power training, Endurance training, Postural training, Flexibilty training, Gait and locomotor training, via Neurocom Balance Mas, Active ROM For the Purpose of:: To decrease pain, To decrease swelling/inflammation, To increase ROM, To improve nutrient delivery to tissue, To increase oxygenation perfusion, To improve muscle performance and motor function, To improve ability to perform ADL's, To increase tolerance to activity/condition/position, To improve gait and locomotor functions, To improve health of tissue, To decrease soft tissue restriction, To increase flexibility/ROM Manual Therapy Techniques to Include: Mobilization, Passive ROM For the Purpose of:: To decrease pain, To decrease swelling/inflammation, To increase ROM, To improve muscle performance and motor function Cryotherapy (ice pack, ice massage): Yes Vasopneumatic device: Yes For the Purpose of:: To decrease pain, To decrease swelling/inflammation, To increase ROM This patient was last seen in our office 02/15/19. Pertinent comments regarding their Physical therapy will appear below: Pt. has not been seen in several months and will be DC from PT at this point intime. At this point I will be discontinuing this patient from physical therapy. I would be happy to see this patient again in the future if found appropriate by the physician. Thank you! Memo Mills, SABINAT
== END 2019-03-28 19:00 | disposition home or self-care (01) ==
LOC: PT 09:30
PROVIDERS: Family Provider Family Medicine; PCP Family Medicine; Referring Provider Specialist; Visit Provider Specialist
DX: Z96.651 Presence of right artificial knee joint (principal); T84.82XD Fibrosis due to internal orthopedic prosthetic devices, implants and grafts, subsequent encounter
CPT/HCPCS: 97110; 97161